=== PATIENT | male | born 1930 | race Two or more races ===

== ENCOUNTER 2017-11-18 14:44 | Inpatient (IN) | payer MEDICARE, OTHER ==
[~2017-11-18] VITALS: Ht 172.7 cm; Wt 67.1 kg
[~2017-11-18 14:44] MED LIST: DEXL60CA3 PO; TAMS-12 PO
--- NOTE | 2017-11-18 14:44 | NUR ---
[id number] FROM HOME FOR WORSENING SOB. 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 PT SPEAKS IN FULL SENTENCE. MONEGASQUE SPEAKING ONLY. DOES NOT APPEAR IN RESP DISTRESS. GOWNED AND PLACED ON CONT CARDIAC AND POX MONITROING, O2 SAT-96% RA. O2 VIA NC AT 2LPM GIVEN FOR COMFORT. WILL CONT TO MONITOR
[2017-11-18 15:27] LABS: BASOPHILS # (AUTO) 0.1 /CMM (0.0-0.2); BASOPHILS % (AUTO) 0.6 % (0.0-2.0); EOSINOPHILS % (AUTO) 0.9 % (0.0-6.0); HEMATOCRIT 35 % (39-51); HEMOGLOBIN 12.1 g/dL (13.5-17.5); LYMPHOCYTES # (AUTO) 2.2 /CMM (0.8-4.8); LYMPHOCYTES % (AUTO) 14.6 % (20.0-44.0); MEAN CORPUSCULAR HEMOGLOBIN 29 PG (26.0-33.0); MEAN CORPUSCULAR HGB CONC 35 g/dl (31.0-36.0); MEAN CORPUSCULAR VOLUME 82 fL (80-96); MONOCYTES # (AUTO) 1.4 /CMM (0.1-1.30); MONOCYTES % (AUTO) 9.4 % (2.0-12.0); NEUTROPHILS # (AUTO) 11.5 /CMM (1.8-8.9); NEUTROPHILS % (AUTO) 74.5 % (43.0-81.0); PLATELET COUNT (AUTO) 322 /CMM (150-450); RDW COEFFICIENT OF VARIATION 14.3 (11.5-15.0); RED BLOOD CELL COUNT(AUTO) 4.26 MIL/uL (4.5-6.0); WHITE BLOOD COUNT (AUTO) 15.3 K/uL (4.3-11.0)
[2017-11-18 15:41] LABS: INR 0.99 (0.85-1.15)
[2017-11-18 15:45] LABS: ALANINE AMINOTRANSFERASE 30 U/L (12-78); ALBUMIN 2.5 g/dL (3.4-5.0); ALKALINE PHOSPHATASE 68 U/L (46-116); ASPARTATE AMINOTRANSFERASE 22 U/L (15-37); BILIRUBIN,DIRECT 0.1 mg/dL (0.0-0.2); BILIRUBIN,TOTAL 0.3 mg/dL (0.2-1.0); CALCIUM, SERUM 9.7 mg/dL (8.5-10.1); CARBON DIOXIDE 25 mmol/L (21-32); CHLORIDE 103 mmol/L (98-107); GLUCOSE 145 mg/dL (74-106); POTASSIUM 3.5 mmol/L (3.5-5.1); SODIUM SERUM 136 mmol/L (136-145); TOTAL PROTEIN, SERUM 7.1 g/dL (6.4-8.2); UREA NITROGEN, BLOOD 10 mg/dL (7-18)
[2017-11-18 15:46] LABS: TROPONIN I < 0.017 ng/mL (0.00-0.056)
--- NOTE | 2017-11-18 16:57 | NUR ---
[facility] PAGED, PATRICIA FLORES DATA STORAGE SPECIALIST
[2017-11-18] MEDS ORDERED: LEVOFLOXACIN 750 MG /D5W 150ML PIGGYBACK IV ONE (17:00)
--- NOTE | 2017-11-18 17:04 | NUR ---
CALLED NURSING SUP. FOR TELE BED
[2017-11-18 17:19] LABS: APPEARANCE,URINE Clear (CLEAR); BILIRUBIN,URINE Negative (NEGATIVE); BLOOD, URINE Moderate Ery/uL (NEGATIVE); COLOR,URINE Yellow (YELLOW); KETONES,URINE Negative (NEGATIVE); LEUKOCYTE ESTERASE ,URINE Trace (NEGATIVE); NITRITE, URINE Negative (NEGATIVE); PROTEIN,URINE Trace mg/dl (NEGATIVE); UGLUCOSE Negative (NEGATIVE); UROBILINOGEN,URINE 0.2 EU/dL (0.2)
[2017-11-18 17:33] LABS: BACTERIA,URINE Few /HPF (None Seen); SQUAMOUS EPITHELIAL CELL,UR Few /HPF (None Seen)
--- NOTE | 2017-11-18 17:34 | NUR ---
TELE [id number] FOR PNEUMONIA, PATRICIA FLORES ADMITTING
[2017-11-18] MEDS ORDERED: LEVOFLOXACIN 750 MG /D5W 150ML 150 ML IV ONE (17:35)
[2017-11-18] MEDS ORDERED: DONE10TA44 PO (17:48)
[2017-11-18] MEDS ORDERED: FLUO20CA36 PO (17:48)
[2017-11-18] MEDS ORDERED: SIMV20TA6 PO (17:48)
[2017-11-18] MEDS ORDERED: FENO134C PO (17:48)
[2017-11-18] MEDS ORDERED: METO-356 PO (17:48)
[2017-11-18] MEDS ORDERED: RANI300C PO (17:48)
[2017-11-18] MEDS ORDERED: FINA5TAB11 PO (17:48)
[2017-11-18] MEDS ORDERED: ATEN25TA PO (17:48)
[2017-11-18] MEDS ORDERED: LINA145C PO (17:48)
[2017-11-18] MEDS ORDERED: MEMA28CA PO (17:48)
[2017-11-18] MEDS ORDERED: METF500T6 PO (17:48)
[2017-11-18] MEDS ORDERED: RAMI2.5C PO (17:48)
[2017-11-18] MEDS ORDERED: ESCI10TA PO (17:48)
[2017-11-18] MEDS ORDERED: TAMS0.4C34 PO (17:48)
--- NOTE | 2017-11-18 18:26 | NUR ---
REPORT GIVEN TO SHEREEN DUPREE FOR TELE [id number].
[2017-11-18] MEDS ORDERED: HYDROCODONE/APAP 5/325MG 1 EACH TABLET PO PRN (19:00)
[2017-11-18] MEDS ORDERED: HYDROCODONE/APAP 10/325MG 1 EA TABLET PO PRN (19:00)
[2017-11-18] MEDS ORDERED: MAG HYDROX/AL HYDROX/SIMETH 30 ML UDC PO PRN (19:00)
[2017-11-18] MEDS ORDERED: MAGNESIUM HYDROXIDE 30 ML UDC PO PRN (19:00)
[2017-11-18] MEDS ORDERED: Z GUARD REMEDY 2 OZ OINT TP PRN (19:00)
[2017-11-18] MEDS ORDERED: ONDANSETRON HCL/PF 4 MG/2 ML VIAL IVP PRN (19:00)
[2017-11-18] MEDS ORDERED: ACETAMINOPHEN 325 MG TABLET PO PRN (19:00)
--- NOTE | 2017-11-18 19:05 | NUR ---
EXECUTIVE ADVISOR OPENING NOTE RECEIVE PATIENT AWAKE IN BED, A/O X3, STABLE NEW ADMISSION, NO FACIAL GRIMACING NOTED FOR PAIN. NO SOB OR DISTRESS NOTED, CALL LIGHT WITHIN REACH. SAFETY MEASURES IMPLEMENTED. WILL CONTINUE TO MONITOR THROUGHOUT SHIFT.
[2017-11-18] MEDS ORDERED: DEXTROSE 50%-WATER 50 ML DISP.SYRIN IV PRN (19:30)
[2017-11-18 20:00] VITALS: BP 112/62
[2017-11-18] MEDS ORDERED: IOHEXOL-300 100 ML VIAL IV ONE (20:05)
[2017-11-18] MEDS: IV NS 0.9% 1,000 ML IV PRN (20:50)
[2017-11-18] MEDS: BLOOD SUGAR DIAGNOSTIC 1 EACH STRIP IN SCH (21:02)
[2017-11-18] MEDS: INSULIN REGULAR, HUMAN 100 UNIT/ML 3 ML VIAL SQ PRN (21:02)
[2017-11-18] MEDS: SIMVASTATIN 20 MG TABLET PO SCH (21:02)
[2017-11-18] MEDS: TAMSULOSIN 0.4 MG CAP.SR.24H PO SCH (21:02)
[2017-11-19] VITALS: BP 110/64
[2017-11-19 04:00] VITALS: BP_SYST 130; BP_SYST 136; BP_DIAS 73
--- NOTE | 2017-11-19 04:55 | NUR ---
TELE NOTES FOUND MEDICATION AT HIS BEDSIDE CABINET PT DOESN'T ALLOW ME TO TOUCH PT REFUSED TO SEND MEDICATION PHARMACIST FOR SAFE KEEPING DESPITE EXPLAINING RISKS AND BENEFITS OFFERED 3 TIMES, STILL REFUSED PER PATIENT HE WANTS IT AT HIS CABINET, EDUCATED PATIENT THAT MEDICATION MUST BE SENT HOME TODAY AND NOT TO TAKE ANYTHING WITHOUT NURSES KNOWLEDGE PATIENT A/O X 3, CHARGE NURSE AWARE.
[2017-11-19] MEDS: BLOOD SUGAR DIAGNOSTIC 1 EACH STRIP IN SCH ×4 (05:49→21:42)
[2017-11-19] MEDS: INSULIN REGULAR, HUMAN 100 UNIT/ML 3 ML VIAL SQ PRN (05:49)
--- NOTE | 2017-11-19 06:06 | NUR ---
EXTENSION SERVICE SPECIALIST IN CHARGE CLOSING NOTES PT COMFORTABLY ASLEEP AND EASILY AWAKEN, A/O X 3, ON 2 LPM VIA NC 02 SAT AT 95% STABLE CONDITION. RESPIRATION EVEN AND UNLABORED. KEPT CLEAN AND DRY AND COMFORTABLE, ALL NURSING CARE RENDERED. NEEDS ATTENDED AND ANTICIPATED, GOOD SKIN CARE PROVIDED. ON LOW BED AT ALL TIMES TO ENSURE SAFETY. SAFE HAZARD FREE ENVIRONMENT PROVIDED. NO COMPLAINS OF PAIN. CALL LIGHT WITHIN EASY TO REACH. WILL ENDORSE NEXT SHIFT CONTINUITY OF CARE.
--- NOTE | 2017-11-19 07:30 | NUR ---
TRUST ADMINISTRATIVE ASSISTANT OPENING NOTE RECEIVE PATIENT AWAKE IN BED, A/O X3, NO ACUTE DISTRESS, NO SON. DENIED PAIN OR DISCOMFORT. IV SITE INTACT AND PATENT. SAFETY MEASURES IN PLACE. BED IN LOW/LOCKED POSITION, SIDERAILS UP, SEMIFOWLERS POSITION, CALL LIGHT IN REACH. WILL CONTINUE TO MONIOTR ACCORDINGLY.
[2017-11-19 07:48] LABS: BASOPHILS % (AUTO) 0.4 % (0.0-2.0); EOSINOPHILS % (AUTO) 0.6 % (0.0-6.0); HEMATOCRIT 33 % (39-51); HEMOGLOBIN 10.9 g/dL (13.5-17.5); LYMPHOCYTES # (AUTO) 2.1 /CMM (0.8-4.8); LYMPHOCYTES % (AUTO) 15.5 % (20.0-44.0); MEAN CORPUSCULAR HEMOGLOBIN 28 PG (26.0-33.0); MEAN CORPUSCULAR HGB CONC 33 g/dl (31.0-36.0); MEAN CORPUSCULAR VOLUME 84 fL (80-96); MONOCYTES # (AUTO) 1.4 /CMM (0.1-1.30); MONOCYTES % (AUTO) 10.6 % (2.0-12.0); NEUTROPHILS # (AUTO) 9.8 /CMM (1.8-8.9); NEUTROPHILS % (AUTO) 72.9 % (43.0-81.0); PLATELET COUNT (AUTO) 307 /CMM (150-450); RDW COEFFICIENT OF VARIATION 14.5 (11.5-15.0); RED BLOOD CELL COUNT(AUTO) 3.87 MIL/uL (4.5-6.0); WHITE BLOOD COUNT (AUTO) 13.4 K/uL (4.3-11.0)
[2017-11-19 08:00] VITALS: BP 118/71
[2017-11-19 08:09] LABS: CALCIUM, SERUM 9.2 mg/dL (8.5-10.1); CARBON DIOXIDE 23 mmol/L (21-32); CHLORIDE 102 mmol/L (98-107); CREATININE 0.9 mg/dL (0.6-1.3); GLUCOSE 115 mg/dL (74-106); MAGNESIUM 1.6 mg/dL (1.8-2.4); PHOSPHORUS 3.8 mg/dL (2.5-4.9); POTASSIUM 3.4 mmol/L (3.5-5.1); SODIUM SERUM 135 mmol/L (136-145); UREA NITROGEN, BLOOD 10 mg/dL (7-18)
[2017-11-19 08:15] LABS: CHOLESTEROL 144 mg/dL (<200); HDL CHOLESTEROL 36 mg/dL (40-60); LDL 103 mg/dL (0-99); THYROID STIMULATING HORMONE 1.629 uIU/mL (0.358-3.74); TRIGLYCERIDES 63 mg/dL (30-150)
[2017-11-19 08:17] LABS: FERRITIN 545 ng/mL (8-388)
[2017-11-19 08:25] LABS: IRON, SERUM 42 ug/dl (50-175); TOTAL IRON BINDING CAPACITY 158 ug/dl (250-450)
[2017-11-19] MEDS: ESCITALOPRAM OXALATE (10 MG) 10 MG TABLET PO SCH (08:57)
[2017-11-19] MEDS: FLUOXETINE HCL 20 MG CAPSULE PO SCH (08:57)
[2017-11-19] MEDS: FINASTERIDE (5 MG) 5 MG TABLET PO SCH (08:57)
[2017-11-19] MEDS: FAMOTIDINE (20 MG) 20 MG TABLET PO SCH (08:57)
[2017-11-19] MEDS: METOPROLOL SUCCINATE 25 MG TAB.SR.24H PO SCH (08:58)
[2017-11-19] MEDS: ATENOLOL 25 MG TABLET PO SCH (08:58)
[2017-11-19] MEDS: MEMANTINE HCL 5 MG TABLET PO SCH ×2 (08:58→17:10)
[2017-11-19] MEDS: DONEPEZIL 5 MG TABLET PO SCH (08:59)
[2017-11-19] MEDS ORDERED: Medication Not On Formulary EA (Linaclotide (Linzess) 145 MCG) PO SCH (09:00)
[2017-11-19] MEDS ORDERED: POTASSIUM CHLORIDE 20 MEQ TAB.PRT.SR PO SCH (11:00)
[2017-11-19] MEDS: Magnesium 1GM/D5W 100ML PREMIX 100 ML IV SCH ×2 (11:17→12:04)
[2017-11-19] MEDS: RAMIPRIL 1.25 MG CAPSULE PO SCH (11:17)
[2017-11-19 12:30] VITALS: BP 119/64
[2017-11-19 16:00] VITALS: BP 113/66
[2017-11-19] MEDS: IV NS 0.9% 1,000 ML IV PRN (17:11)
[2017-11-19] MEDS: LEVOFLOXACIN 750 MG /D5W 150ML 750 MG in PREMIX 1 EA IV SCH (17:11)
--- NOTE | 2017-11-19 19:10 | NUR ---
RN CLOSING NOTES PATIENT IN STABLE CONDITION. ALL NEEDS ATTENDED AND PROVIDED. KEPT PATIENT SAFE AND COMFORTABLE. BED IN LOW/LOCKED POSITION, SIDERAILS UPX2, CALL LIGHT IN REACH. ENDORSED TO NIGHT RN FOR CARLY.
[2017-11-19 20:00] VITALS: BP 108/63
[2017-11-19] MEDS: SIMVASTATIN 20 MG TABLET PO SCH (21:42)
[2017-11-19] MEDS: TAMSULOSIN 0.4 MG CAP.SR.24H PO SCH (21:42)
[2017-11-20] MEDS: BLOOD SUGAR DIAGNOSTIC 1 EACH STRIP IN SCH ×4 (06:31→21:08)
[2017-11-20 06:39] LABS: INR 1.02 (0.87-1.13)
[2017-11-20 06:50] LABS: CALCIUM, SERUM 9.4 mg/dL (8.5-10.1); CARBON DIOXIDE 24 mmol/L (21-32); CHLORIDE 102 mmol/L (98-107); CREATININE 0.8 mg/dL (0.6-1.3); GLUCOSE 118 mg/dL (74-106); POTASSIUM 3.8 mmol/L (3.5-5.1); SODIUM SERUM 135 mmol/L (136-145); UREA NITROGEN, BLOOD 12 mg/dL (7-18)
--- NOTE | 2017-11-20 06:50 | NUR ---
MS RN NOTES AWAKE & RESPONSIVE. NOT IN ANY DISTRESS. NO SOB NOTED. DENIES ANY PAIN OR DISCOMFORT AT THIS TIME. KEPT ON NPO P MN WITH IVF INFUSING WELL. MONITORED ACCORDINGLY. CALL LIGHT WITHIN REACH. BED IN LOWEST POSITION. SR UP X 2 FOR SAFETY. WILL ENDORSE TO NEXT SHIFT.
[2017-11-20 08:00] VITALS: BP 128/67
--- NOTE | 2017-11-20 08:07 | NUR ---
MS RN OPENING NOTE RECEIVED PATIENT IN BED, ALERT ORIENTED X3, ON 2L O2 VIA NC, TOLERATING WELL. IN NO APPARENT DISTRESS OR DISCOMFORT AT THIS TIME. RESPIRATIONS EVEN AND UNLABORED, DENIES PAIN AND SOB. PATIENT IS MALDIVIAN SPEAKING AND ABLE TO COMMUNICATE NEEDS IN HIS OWN LANGUAGE. AMBULATES WITH ASSISTANCE. PATIENT IS ON NPO STATUS DUE TO UPCOMING PROCEDURE. L HAND 22G IVC WITH FLUIDS RUNNING AT 65ML/HR, NO SING OF INFILTRATION NOTED. PATENT AND INTACT. ALL NEEDS ATTENDED, SAFETY MEASURES IN PLACE, BED IN LOW LOCKED POSITION, SIDE RAILS UP X2, CALL LIGHT WITHIN EASY REACH. WILL CONTINUE TO MONITOR.
[2017-11-20] MEDS: ATENOLOL 25 MG TABLET PO SCH (09:00)
[2017-11-20] MEDS: FAMOTIDINE (20 MG) 20 MG TABLET PO SCH (09:00)
[2017-11-20] MEDS: RAMIPRIL 1.25 MG CAPSULE PO SCH (09:00)
[2017-11-20] MEDS: METOPROLOL SUCCINATE 25 MG TAB.SR.24H PO SCH (09:00)
[2017-11-20] MEDS: MEMANTINE HCL 5 MG TABLET PO SCH ×2 (09:00→16:53)
[2017-11-20] MEDS: ESCITALOPRAM OXALATE (10 MG) 10 MG TABLET PO SCH (09:00)
[2017-11-20] MEDS: FINASTERIDE (5 MG) 5 MG TABLET PO SCH (09:00)
[2017-11-20] MEDS: FLUOXETINE HCL 20 MG CAPSULE PO SCH (09:00)
[2017-11-20] MEDS: DONEPEZIL 5 MG TABLET PO SCH (09:00)
--- NOTE | 2017-11-20 11:30 | NUR ---
DR REBOLLEDO NOTIFIED OLEG THAT PATIENT IS NOT GOING TO HAVE PROCEDURE DONE TODAY. PATIENT WAS TAKEN OFF THE NPO STATUS. LUNCH ORDERED. WILL CARRY OUT FURTHER ORDERS.
[2017-11-20] MEDS: IV NS 0.9% 1,000 ML IV PRN (12:41)
[2017-11-20 16:00] VITALS: BP 115/58
[2017-11-20] MEDS: LEVOFLOXACIN 750 MG /D5W 150ML 750 MG in PREMIX 1 EA IV SCH (17:02)
--- NOTE | 2017-11-20 18:55 | NUR ---
MS RN CLOSING NOTE PATIENT IN BED, ALERT ORIENTED X3, ON ROOM AIR CURRENTLY, TOLERATING WELL. IN NO APPARENT DISTRESS OR DISCOMFORT AT THIS TIME. RESPIRATIONS EVEN AND UNLABORED, DENIES PAIN AND SOB. PATIENT IS MONGOLIAN SPEAKING AND ABLE TO COMMUNICATE NEEDS IN HIS OWN LANGUAGE. AMBULATES WITH STANDBY ASSISTANCE. L HAND 22G IVC WITH FLUIDS RUNNING AT 65ML/HR, NO SING OF INFILTRATION NOTED. PATENT AND INTACT. ALL NEEDED INTERVENTIONS IMPLEMENTED, NEEDS ATTENDED, KEPT CLEAN AND COMFORTABLE, SAFETY MEASURES IN PLACE, BED IN LOW LOCKED POSITION, SIDE RAILS UP X2, CALL LIGHT WITHIN EASY REACH. FAMILY AT BEDSIDE. WILL ENDORSE TO PM NURSE FOR CARLY.
[2017-11-20 20:00] VITALS: BP 124/67
[2017-11-20] MEDS: TAMSULOSIN 0.4 MG CAP.SR.24H PO SCH (21:08)
[2017-11-20] MEDS: SIMVASTATIN 20 MG TABLET PO SCH (21:08)
[2017-11-21] MEDS: IV D5/0.45 NACL 1,000 ML IV PRN (01:24)
--- NOTE | 2017-11-21 06:13 | NUR ---
MS RN NOTES AWAKE & RESPONSIVE. NOT IN ANY DISTRESS. NO SOB NOTED. DENIES ANY PAIN OR DISCOMFORT AT THIS TIME. KEPT ON NPO WITH IVF INFUSING WELL. MONITORED ACCORDINGLY. CALL LIGHT WITHIN REACH. BED IN LOWEST POSITION. SR UP X 2 FOR SAFETY. WILL ENDORSE TO NEXT SHIFT.
[2017-11-21] MEDS: BLOOD SUGAR DIAGNOSTIC 1 EACH STRIP IN SCH ×4 (06:18→21:58)
--- NOTE | 2017-11-21 07:34 | NUR ---
MS RN OPENING NOTE RECEIVED PATIENT IN BED, ALERT ORIENTED X3, ON ROOM AIR AT THIS TIME, TOLERATING WELL. IN NO APPARENT DISTRESS OR DISCOMFORT AT THIS TIME. RESPIRATIONS EVEN AND UNLABORED, DENIES PAIN AND SOB. PATIENT IS ARABIC SPEAKING AND ABLE TO COMMUNICATE NEEDS IN HIS OWN LANGUAGE. AMBULATES WITH ASSISTANCE. PATIENT IS ON NPO STATUS DUE TO UPCOMING PROCEDURE. L HAND 22G IVC WITH FLUIDS RUNNING AT 65ML/HR, NO SING OF INFILTRATION NOTED. PATENT AND INTACT. ALL NEEDS ATTENDED, SAFETY MEASURES IN PLACE, BED IN LOW LOCKED POSITION, SIDE RAILS UP X2, CALL LIGHT WITHIN EASY REACH. WILL CONTINUE TO MONITOR.
[2017-11-21 08:00] VITALS: BP 132/66
[2017-11-21 08:10] LABS: IMMUNOGLOBULIN A, SERUM 193 mg/dL (61-437); IMMUNOGLOBULIN G, SERUM 882 mg/dL (700-1600); IMMUNOGLOBULIN M, SERUM 53 mg/dL (15-143)
[2017-11-21 08:29] LABS: BASOPHILS % (AUTO) 0.3 % (0.0-2.0); EOSINOPHILS % (AUTO) 0.7 % (0.0-6.0); HEMATOCRIT 32 % (39-51); HEMOGLOBIN 11.3 g/dL (13.5-17.5); LYMPHOCYTES # (AUTO) 2.2 /CMM (0.8-4.8); LYMPHOCYTES % (AUTO) 18.1 % (20.0-44.0); MEAN CORPUSCULAR HEMOGLOBIN 29 PG (26.0-33.0); MEAN CORPUSCULAR HGB CONC 35 g/dl (31.0-36.0); MEAN CORPUSCULAR VOLUME 83 fL (80-96); MONOCYTES # (AUTO) 1.3 /CMM (0.1-1.30); NEUTROPHILS # (AUTO) 8.5 /CMM (1.8-8.9); NEUTROPHILS % (AUTO) 69.9 % (43.0-81.0); PLATELET COUNT (AUTO) 294 /CMM (150-450); RDW COEFFICIENT OF VARIATION 14.1 (11.5-15.0); RED BLOOD CELL COUNT(AUTO) 3.88 MIL/uL (4.5-6.0); WHITE BLOOD COUNT (AUTO) 12.1 K/uL (4.3-11.0)
[2017-11-21 08:43] LABS: CALCIUM, SERUM 8.9 mg/dL (8.5-10.1); CARBON DIOXIDE 23 mmol/L (21-32); CHLORIDE 103 mmol/L (98-107); CREATININE 0.9 mg/dL (0.6-1.3); GLUCOSE 160 mg/dL (74-106); POTASSIUM 3.5 mmol/L (3.5-5.1); SODIUM SERUM 137 mmol/L (136-145); UREA NITROGEN, BLOOD 13 mg/dL (7-18)
[2017-11-21] MEDS: DONEPEZIL 5 MG TABLET PO SCH (09:00)
[2017-11-21] MEDS: FINASTERIDE (5 MG) 5 MG TABLET PO SCH (09:00)
[2017-11-21] MEDS: FLUOXETINE HCL 20 MG CAPSULE PO SCH (09:00)
[2017-11-21] MEDS: MEMANTINE HCL 5 MG TABLET PO SCH ×2 (09:00→17:19)
[2017-11-21] MEDS: ESCITALOPRAM OXALATE (10 MG) 10 MG TABLET PO SCH (09:00)
[2017-11-21] MEDS: METOPROLOL SUCCINATE 25 MG TAB.SR.24H PO SCH (09:00)
[2017-11-21] MEDS: ATENOLOL 25 MG TABLET PO SCH (09:00)
[2017-11-21] MEDS: FAMOTIDINE (20 MG) 20 MG TABLET PO SCH (09:00)
[2017-11-21] MEDS: RAMIPRIL 1.25 MG CAPSULE PO SCH (09:00)
[2017-11-21] MEDS: FENOFIBRATE NANOCRYS (145 MG) 145 MG TABLET PO SCH (11:00)
[2017-11-21] MEDS ORDERED: methylPREDNISolone SOD SUCC 40 MG/ML VIAL IV ONE (12:00)
[2017-11-21 12:13] LABS: *SPE A/G RATIO 0.7 (0.7-1.7); *SPE ALBUMIN 2.5 g/dL (2.9-4.4); *SPE ALPHA-1-GLOBULIN 0.4 g/dL (0.0-0.4); *SPE ALPHA-2-GLOBULIN 1.3 g/dL (0.4-1.0); *SPE BETA GLOBULIN 0.9 g/dL (0.7-1.3); *SPE GLOBULIN, TOTAL 3.4 g/dL (2.2-3.9); *SPE M-SPIKE Not Observed g/dL (Not Observed); *SPEGAMMA GLOBULIN 0.9 g/dL (0.4-1.8)
--- NOTE | 2017-11-21 12:45 | NUR ---
ORDER RECEIVED BY DR. MCADAMS FOR PRE - BRONCHOSCOPY BREATHING TREATMENTS. ONE HOUR BEFORE PROCEDURE. PROCEDURE SCHEDULED AT 1400. ORDER PLACED FOR 1300 BREATHING TREATMENT. CALLED RT NOTIFIED ABOUT THE ORDER TO BE COMPLETED AT 1300./
[2017-11-21] MEDS ORDERED: IPRATROPIUM NEB FS 0.5 MG/2.5 ML AMPUL.NEB NEB ONE (13:00)
[2017-11-21] MEDS ORDERED: ALBUTEROL HALF STRENGTH 1.25 MG/3 ML VIAL.NEB NEB ONE (13:00)
[2017-11-21] MEDS ORDERED: LIDOCAINE 2% JEL 5 ML TUBE ONE (14:15)
[2017-11-21] MEDS ORDERED: SUCCINYLCHOLINE CHLORIDE 20 MG/ML VIAL ONE (14:18)
--- NOTE | 2017-11-21 15:20 | NUR ---
PATIENT WAS BROUGHT BACK FROM OR. STABLE, ALERT ORIENTED X2-3, SLIGHTLY CONFUSED. VITALS SIGNS: BP 125/68, HR: 105, O2 SAT: 94% ON ROOM AIR. RECEIVED ORDER TO RESUME PRE-OP ORDERS, REGULAR DIET WHEN AWAKE AND DC IV FLUIDS ONCE PATIENT STARTS EATING. WILL CONTINUE TO MONITOR.
[2017-11-21] MEDS ORDERED: HYDROCODONE BIT/HOMATROPINE 5 ML UDC PO PRN (15:30)
[2017-11-21 16:00] VITALS: BP 125/68
--- NOTE | 2017-11-21 16:27 | NUR ---
RECEIVED REPORT FROM PHARMACY THAT PATIENT'S HOME MEDICATION LINZESS IS NOT AVAILABLE IN THE PHARMACY AND THAT MEDICATION SHOULD BE BROUGHT FROM HOME. PATIENT'S DAUGHTER SAID SHE WONT BE ABLE TO BRING IT FROM HIS FATHER'S HOME. NOTIFIED DR. TILLMAN ABOUT THE MEDICATION NOT BEING AVAILABLE. NO NEW ORDERS AT THIS TIME.
[2017-11-21] MEDS: POLYVINYL ALCOHOL 15 ML BOTTLE EACHEYE PRN (17:19)
[2017-11-21] MEDS: LEVOFLOXACIN 750 MG /D5W 150ML 750 MG in PREMIX 1 EA IV SCH (17:25)
[2017-11-21] MEDS: INSULIN REGULAR, HUMAN 100 UNIT/ML 3 ML VIAL SQ PRN ×2 (17:25→22:09)
--- NOTE | 2017-11-21 19:09 | NUR ---
MS RN CLOSING NOTE PATIENT IN BED, ALERT ORIENTED X3, ON ROOM AIR CURRENTLY, TOLERATING WELL. IN NO APPARENT DISTRESS OR DISCOMFORT AT THIS TIME. RESPIRATIONS EVEN AND UNLABORED, DENIES PAIN AND SOB. PATIENT IS DIVEHI SPEAKING AND ABLE TO COMMUNICATE NEEDS IN HIS OWN LANGUAGE. AMBULATES WITH STANDBY ASSISTANCE. L HAND 22G IVC WITH FLUIDS RUNNING AT 75ML/HR, NO SING OF INFILTRATION NOTED. PATENT AND INTACT PATIENT REMAINED STABLE AFTER BRONCHOSCOPY, TOLERATED ORAL INTAKE. ALL NEEDED INTERVENTIONS IMPLEMENTED, NEEDS ATTENDED, KEPT CLEAN AND COMFORTABLE, SAFETY MEASURES IN PLACE, BED IN LOW LOCKED POSITION, SIDE RAILS UP X2, CALL LIGHT WITHIN EASY REACH. WILL ENDORSE TO PM NURSE FOR CARLY.
--- NOTE | 2017-11-21 19:10 | NUR ---
RN NOTES RECEIVED PATIENT IN BED, AWAKE, A/O X 3, VERBALLY RESPONSIVE FORGETFUL . NO DISTRESS NOTED OR SOB NOTED. IV SITE ON LEFT HAND INTACT AND PATENT, NO S/S OF INFILTRATION NOTED. NO S/S OF HYPO/ HYPERGLYCEMIA NOTED. NO C/O OF PAIN OR DISCOMFORT. ALL NEEDS ATTENDED AND MET. CALL LIGHT WITHIN REACH. SAFETY PRECAUTIONS OBSERVED. WILL CONT TO MONITOR.
[2017-11-21 20:00] VITALS: BP_SYST 112; BP_SYST 118; BP_DIAS 68; BP_DIAS 72
[2017-11-21] MEDS: SIMVASTATIN 20 MG TABLET PO SCH (21:58)
[2017-11-21] MEDS: TAMSULOSIN 0.4 MG CAP.SR.24H PO SCH (21:58)
[2017-11-22] MEDS: IV D5/0.45 NACL 1,000 ML IV PRN ×2 (06:12→17:42)
[2017-11-22] MEDS: BLOOD SUGAR DIAGNOSTIC 1 EACH STRIP IN SCH ×4 (06:14→21:30)
[2017-11-22] MEDS: POLYVINYL ALCOHOL 15 ML BOTTLE EACHEYE PRN (06:19)
[2017-11-22 06:44] LABS: BASOPHILS # (AUTO) 0.1 /CMM (0.0-0.2); BASOPHILS % (AUTO) 0.4 % (0.0-2.0); EOSINOPHILS % (AUTO) 0.1 % (0.0-6.0); HEMATOCRIT 33 % (39-51); HEMOGLOBIN 11.5 g/dL (13.5-17.5); LYMPHOCYTES # (AUTO) 2.6 /CMM (0.8-4.8); LYMPHOCYTES % (AUTO) 16.1 % (20.0-44.0); MEAN CORPUSCULAR HEMOGLOBIN 29 PG (26.0-33.0); MEAN CORPUSCULAR HGB CONC 35 g/dl (31.0-36.0); MEAN CORPUSCULAR VOLUME 83 fL (80-96); MONOCYTES # (AUTO) 1.6 /CMM (0.1-1.30); NEUTROPHILS % (AUTO) 73.4 % (43.0-81.0); PLATELET COUNT (AUTO) 313 /CMM (150-450); RDW COEFFICIENT OF VARIATION 14.1 (11.5-15.0); WHITE BLOOD COUNT (AUTO) 16.3 K/uL (4.3-11.0)
--- NOTE | 2017-11-22 06:45 | NUR ---
RN NOTES PATIENT IN BED, RESTING COMFORTABLY, AROUSES EASILY, A/O X 3, VERBALLY RESPONSIVE FORGETFUL . NO DISTRESS NOTED OR SOB NOTED. IV SITE ON LEFT HAND INTACT AND PATENT, NO S/S OF INFILTRATION NOTED. NO S/S OF HYPO/ HYPERGLYCEMIA NOTED. NO C/O OF PAIN OR DISCOMFORT. ALL NEEDS ATTENDED AND MET. CALL LIGHT WITHIN REACH. SAFETY PRECAUTIONS OBSERVED. WILL ENDORSE TO NEXT SHIFT FOR CARLY
[2017-11-22 07:12] LABS: CALCIUM, SERUM 9.6 mg/dL (8.5-10.1); CARBON DIOXIDE 23 mmol/L (21-32); CHLORIDE 103 mmol/L (98-107); CREATININE 0.9 mg/dL (0.6-1.3); GLUCOSE 126 mg/dL (74-106); POTASSIUM 3.9 mmol/L (3.5-5.1); SODIUM SERUM 137 mmol/L (136-145); UREA NITROGEN, BLOOD 17 mg/dL (7-18)
[2017-11-22 08:00] VITALS: BP 133/72
--- NOTE | 2017-11-22 08:21 | NUR ---
DOCUMENTED RESPIRATORY TREATMENT NON-ADMINISTERED TO RID OF THE RED REMINDER.
[2017-11-22] MEDS: FAMOTIDINE (20 MG) 20 MG TABLET PO SCH (09:01)
[2017-11-22] MEDS: MEMANTINE HCL 5 MG TABLET PO SCH ×2 (09:02→17:31)
[2017-11-22] MEDS: FINASTERIDE (5 MG) 5 MG TABLET PO SCH (09:02)
[2017-11-22] MEDS: FLUOXETINE HCL 20 MG CAPSULE PO SCH (09:02)
[2017-11-22] MEDS: DONEPEZIL 5 MG TABLET PO SCH (09:03)
[2017-11-22] MEDS: ESCITALOPRAM OXALATE (10 MG) 10 MG TABLET PO SCH (09:04)
[2017-11-22] MEDS: FENOFIBRATE NANOCRYS (145 MG) 145 MG TABLET PO SCH (09:04)
[2017-11-22] MEDS: METOPROLOL SUCCINATE 25 MG TAB.SR.24H PO SCH (09:04)
[2017-11-22] MEDS: ATENOLOL 25 MG TABLET PO SCH (09:05)
[2017-11-22] MEDS: RAMIPRIL 1.25 MG CAPSULE PO SCH (09:08)
--- NOTE | 2017-11-22 10:56 | NUR ---
MS RN OPENING NOTE RECEIVED BEDSIDE SBAR REPORT ON THE PATIENT. PATIENT IS A/O X4, ASLEEP, AWAKEN EASILY IN BED. BED IS LOCKED IN LOWEST POSITION, SIDE RAILS UP X2,BED ALARM IS ON. PATIENT IS AMBULATORY WITH ASSIST. CALL LIGHT WITHIN REACH. EDUCATED THE PATIENT TO CALL FOR ASSISTANCE USING THE CALL LIGHT. PATIENT VERBALIZED UNDERSTANDING. CHEST RISING EQUALLY, BILATERALLY. SPO2 94% ON RA. VS WNL. DENIES PAIN/DISCOMFORT AT THIS TIME. WILL CONTINUE TO ASSESS/MONITOR THROUGHOUT THE SHIFT.
--- NOTE | 2017-11-22 12:12 | NUR ---
Refused Bg check. Will attempt later.
--- NOTE | 2017-11-22 13:39 | NUR ---
Refused BG check
[2017-11-22] MEDS: AMOX/CLAVULANATE 875 MG TABLET PO SCH ×2 (14:50→21:12)
[2017-11-22 16:00] VITALS: BP 131/70
--- NOTE | 2017-11-22 18:54 | NUR ---
MS RN CLOSING NOTE PATIENT IS A/O X4, AWAKE AND RESPONSIVE IN BED. JAPANESE SPEAKING. BED IS LOCKED IN LOWEST POSITION, SIDE RAILS UP X2,BED ALARM IS ON. PATIENT IS AMBULATORY WITH ASSIST. CALL LIGHT WITHIN REACH. EDUCATED THE PATIENT TO CALL FOR ASSISTANCE USING THE CALL LIGHT. PATIENT VERBALIZED UNDERSTANDING. CHEST RISING EQUALLY, BILATERALLY. SPO2 95% ON RA. VS WNL. DENIES PAIN/DISCOMFORT AT THIS TIME. WILL ENDORSE TO THE HOST HOSTESS NURSE FOR CARLY.
--- NOTE | 2017-11-22 19:10 | NUR ---
MS RN OPENING NOTE Patient was seen lying in bed AAOx3, breathing on RA with no SOB, and no signs of acute distress. D5 1/2NS is running through the left hand at 75ml/hr. Bed is in the low/locked position, two side rails up, and call saenz within reach. Patient was made comfortable in bed with extra blankets at his request; otherwise patient has no immediate needs/concerns at this time. Will continue to monitor.
[2017-11-22 20:00] VITALS: BP 129/75
[2017-11-22] MEDS: SIMVASTATIN 20 MG TABLET PO SCH (21:12)
[2017-11-22] MEDS: TAMSULOSIN 0.4 MG CAP.SR.24H PO SCH (21:12)
[2017-11-22] MEDS: INSULIN REGULAR, HUMAN 100 UNIT/ML 3 ML VIAL SQ PRN (21:30)
[2017-11-23] MEDS: BLOOD SUGAR DIAGNOSTIC 1 EACH STRIP IN SCH ×4 (06:36→21:18)
[2017-11-23] MEDS: INSULIN REGULAR, HUMAN 100 UNIT/ML 3 ML VIAL SQ PRN ×2 (06:38→21:29)
[2017-11-23] MEDS: IV D5/0.45 NACL 1,000 ML IV PRN ×2 (06:39→21:44)
--- NOTE | 2017-11-23 06:58 | NUR ---
MS RN CLOSING NOTE Patient is AAOx3, breathing on RA with no SOB, and no signs of acute distress. Patient slept well overnight with no complaints or complications. D5 1/2 NS is running at 75ml/hr through the left hand IV. Bed is low/locked, two side rails up, and call saenz within reach. All patient needs have been addressed this shift and patient has no concerns at this time. Patient care endorsed to day shift nurse.
--- NOTE | 2017-11-23 07:15 | NUR ---
MS/RN OPENING NOTE PATIENT IN BED AWAKE. ALERT AND ORIENTED X3 WITH EPISODES OF FORGETFULNESS. REMINDERS PROVIDED NEEDED. DENIES SOB. RESPIRATION REGULAR AND UNLABORED. PATIENT IN ROOM AIR. DENIES PAIN. LEFT HAND G 22 PATENT AND IV FLUIDS INFUSING WITH NO S/S INFILTRATION. BED LOW AND LOCKED. SIDE RAILS UP X3. CALL IGHT WITHIN REACH. WILL CONTINUE TO MONITOR.
[2017-11-23 08:00] VITALS: BP 136/66
[2017-11-23 08:05] LABS: CALCIUM, SERUM 9.3 mg/dL (8.5-10.1); CARBON DIOXIDE 25 mmol/L (21-32); CHLORIDE 102 mmol/L (98-107); CREATININE 0.8 mg/dL (0.6-1.3); GLUCOSE 144 mg/dL (74-106); POTASSIUM 3.5 mmol/L (3.5-5.1); SODIUM SERUM 136 mmol/L (136-145); UREA NITROGEN, BLOOD 14 mg/dL (7-18)
[2017-11-23 08:33] LABS: RED BLOOD CELL COUNT(AUTO) 4.19 MIL/uL (4.5-6.0); WHITE BLOOD COUNT (AUTO) 17.2 K/uL (4.3-11.0)
[2017-11-23 08:34] LABS: BASOPHILS % (AUTO) 0.3 % (0.0-2.0); EOSINOPHILS % (AUTO) 0.5 % (0.0-6.0); HEMATOCRIT 34 % (39-51); HEMOGLOBIN 11.7 g/dL (13.5-17.5); LYMPHOCYTES % (AUTO) 10.5 % (20.0-44.0); MEAN CORPUSCULAR HEMOGLOBIN 28 PG (26.0-33.0); MEAN CORPUSCULAR HGB CONC 34 g/dl (31.0-36.0); MEAN CORPUSCULAR VOLUME 82 fL (80-96); MONOCYTES % (AUTO) 10.8 % (2.0-12.0); NEUTROPHILS % (AUTO) 77.9 % (43.0-81.0); PLATELET COUNT (AUTO) 325 /CMM (150-450); RDW COEFFICIENT OF VARIATION 15.2 (11.5-15.0)
[2017-11-23] MEDS: MEMANTINE HCL 5 MG TABLET PO SCH ×2 (08:55→16:55)
[2017-11-23] MEDS: FAMOTIDINE (20 MG) 20 MG TABLET PO SCH (08:55)
[2017-11-23] MEDS: AMOX/CLAVULANATE 875 MG TABLET PO SCH ×2 (08:55→21:18)
[2017-11-23] MEDS: DONEPEZIL 5 MG TABLET PO SCH (08:56)
[2017-11-23] MEDS: FLUOXETINE HCL 20 MG CAPSULE PO SCH (08:56)
[2017-11-23] MEDS: ESCITALOPRAM OXALATE (10 MG) 10 MG TABLET PO SCH (08:56)
[2017-11-23] MEDS: ATENOLOL 25 MG TABLET PO SCH (08:56)
[2017-11-23] MEDS: METOPROLOL SUCCINATE 25 MG TAB.SR.24H PO SCH (08:57)
[2017-11-23] MEDS: FINASTERIDE (5 MG) 5 MG TABLET PO SCH (08:57)
[2017-11-23] MEDS: FENOFIBRATE NANOCRYS (145 MG) 145 MG TABLET PO SCH (08:57)
[2017-11-23] MEDS: RAMIPRIL 1.25 MG CAPSULE PO SCH (09:00)
[2017-11-23] MEDS: POLYVINYL ALCOHOL 15 ML BOTTLE EACHEYE PRN (09:01)
[2017-11-23] MEDS: PIPERACILLIN /TAZOBACTAM 3.375 G in IV D5W 50 ML IV SCH ×2 (11:38→16:59)
--- NOTE | 2017-11-23 12:00 | NUR ---
MS/RN NOTE 1157 BLOOD SUGAR IS 184, HOWEVER, THE PATIENT REFUSES INSULIN. RISKS AND BENEFITS WERE EXPLAINED BUT THE PATIENT STILL REFUSED.
[2017-11-23 16:00] VITALS: BP 99/53
--- NOTE | 2017-11-23 17:30 | NUR ---
MS/RN NOTE AT 1647 BLOOD SUGAR IS 155 AND PATIENT REFUSED INSULIN DESPITE EXPLAINING RISKS AND BENEFITS MULTIPLE TIMES.
--- NOTE | 2017-11-23 18:12 | NUR ---
MS/RN CLOSING NOTE PATIENT ALERT AND ORIENTED X4 WITH EPISODES OF FORGETFULNESS AND BHUTANESE SPEAKING. REMINDERS ARE PROVIDED NEEDED. DENIES PAIN AT THIS TIME. RESPIRATION REGULAR AND UNLABORED. PATIENT IN ROOM AIR AND OXYGEN SATURATION AT 96%. DENIES SOB AT THIS TIME. LEFT HAND G 22 PATENT AND IV INFUSING WITH NO S/S INFILTRATION. PATIENT CONTINENT ON BOWEL AND BLADDER. PATIENT AMBULATES AND NOTED TO HAVE STABLE GAIT. VERBAL CUES ARE PROVIDED TO KEEP SAFETY AWARENESS HIGH. GOOD AND GENTLE SKIN CARE RENDERED. KEPT CLEAN, DRY AND COMFORTABLE. ALL NEEDS ATTENDED AND ANTICIPATED. BED LOW AND LOCKED. SIDE RAILS UP X3. CALL LIGHT WITHIN REACH. WILL ENDORSE TO DRAW FRAME TENDER.
--- NOTE | 2017-11-23 19:15 | NUR ---
MS RN OPENING NOTES: RECEIVED PT IN BED AND IS SITTING UP. PT IS A/OX3 AND IS BRAZILIAN SPEAKING. PT CAN UNDERSTAND SOME MACANESE. PT HAS IV AND IS BEING INFUSED WITH D5 1/2 NS AT 75ML/HR. CALL LIGHT WITHIN PT'S REACH. BED KEPT IN LOW, LOCKED POSITION, AND SIDE RAILS X 2UP. URINAL AT BEDSIDE. WILL CONTINUE TO MONITOR PT.
[2017-11-23 20:36] VITALS: BP 106/58
[2017-11-23] MEDS: TAMSULOSIN 0.4 MG CAP.SR.24H PO SCH (21:18)
[2017-11-23] MEDS: SIMVASTATIN 20 MG TABLET PO SCH (21:18)
--- NOTE | 2017-11-23 21:29 | NUR ---
MS RN NOTES: PT REFUSING INSULIN. BLOOD SUGAR WAS 155 AND EXPLAINED TO HIM THAT HE NEEDS 2 UNITS OF INSULIN. PT EXPLAINED RISKS AND BENEFITS X3. PT STILL REFUSING. PT ALSO EXPLAINED HE DOES NOT TAKE INSULIN AT HOME. WILL CONTINUE TO MONITOR.
[2017-11-24] MEDS: BLOOD SUGAR DIAGNOSTIC 1 EACH STRIP IN SCH ×4 (06:19→21:29)
[2017-11-24] MEDS: INSULIN REGULAR, HUMAN 100 UNIT/ML 3 ML VIAL SQ PRN ×4 (06:28→21:36)
--- NOTE | 2017-11-24 06:28 | NUR ---
MS RN NOTES: BLOOD SUGAR THIS AM WAS 126. NO INSULIN WAS ADMINISTERED. WILL CONTINUE TO MONITOR.
--- NOTE | 2017-11-24 06:49 | NUR ---
MS RN CLOSING NOTES: ALL NEEDS WERE ATTENDED AND ANTICIPATED FOR. PT LAYING DOWN IN BED WITH 2 PILLOWS AND SEMI-HUNTER'S POSITION. PT AWAKE. PT IS GIBRALTARIAN SPEAKING ONLY AND CAN ONLY UNDERSTAND/SPEAK MINIMAL AUSTRALIAN. PT HAS IV IN PLACE AND IS BEING INFUSED WITH IV D5 1/2 NS AT 75ML/HR. CALL LIGHT WITHIN PT'S REACH. BED KEPT IN LOW, LOCKED POSITION, AND SIDE RAILS X 2UP. WILL ENDORSE TO AM NURSE FOR CARLY.
[2017-11-24 08:00] VITALS: BP 111/89
--- NOTE | 2017-11-24 08:00 | NUR ---
MS RN NOTES PATIENT IN BED RESTING ALERT, ORIENTED X3 NO SOB OR ACUTE DISTRESS NOTED. BED IN LOW LOCKED POSITION. CALL LIGHT WITHIN REACH. PATIENT WITH PATENT PERIPHERAL IV. WILL CONTINUE TO MONITOR.
[2017-11-24] MEDS: DONEPEZIL 5 MG TABLET PO SCH (08:32)
[2017-11-24] MEDS: ESCITALOPRAM OXALATE (10 MG) 10 MG TABLET PO SCH (08:32)
[2017-11-24] MEDS: AMOX/CLAVULANATE 875 MG TABLET PO SCH (08:32)
[2017-11-24] MEDS: MEMANTINE HCL 5 MG TABLET PO SCH ×2 (08:32→17:18)
[2017-11-24] MEDS: FINASTERIDE (5 MG) 5 MG TABLET PO SCH (08:32)
[2017-11-24] MEDS: FLUOXETINE HCL 20 MG CAPSULE PO SCH (08:32)
[2017-11-24] MEDS: FENOFIBRATE NANOCRYS (145 MG) 145 MG TABLET PO SCH (08:32)
[2017-11-24] MEDS: FAMOTIDINE (20 MG) 20 MG TABLET PO SCH (08:32)
[2017-11-24] MEDS: ATENOLOL 25 MG TABLET PO SCH (08:33)
[2017-11-24] MEDS: METOPROLOL SUCCINATE 25 MG TAB.SR.24H PO SCH (08:33)
[2017-11-24] MEDS: RAMIPRIL 1.25 MG CAPSULE PO SCH (08:36)
[2017-11-24 09:48] LABS: CALCIUM, SERUM 9.1 mg/dL (8.5-10.1); CARBON DIOXIDE 23 mmol/L (21-32); CHLORIDE 97 mmol/L (98-107); GLUCOSE 229 mg/dL (74-106); POTASSIUM 3.4 mmol/L (3.5-5.1); SODIUM SERUM 133 mmol/L (136-145); UREA NITROGEN, BLOOD 14 mg/dL (7-18)
[2017-11-24 10:00] LABS: BASOPHILS # (AUTO) 0.1 /CMM (0.0-0.2); BASOPHILS % (AUTO) 0.3 % (0.0-2.0); EOSINOPHILS % (AUTO) 0.3 % (0.0-6.0); HEMATOCRIT 33 % (39-51); HEMOGLOBIN 11.7 g/dL (13.5-17.5); LYMPHOCYTES # (AUTO) 1.9 /CMM (0.8-4.8); LYMPHOCYTES % (AUTO) 9.2 % (20.0-44.0); MEAN CORPUSCULAR HEMOGLOBIN 29 PG (26.0-33.0); MEAN CORPUSCULAR HGB CONC 35 g/dl (31.0-36.0); MEAN CORPUSCULAR VOLUME 82 fL (80-96); MONOCYTES # (AUTO) 1.9 /CMM (0.1-1.30); MONOCYTES % (AUTO) 9.2 % (2.0-12.0); NEUTROPHILS # (AUTO) 16.2 /CMM (1.8-8.9); PLATELET COUNT (AUTO) 342 /CMM (150-450); RDW COEFFICIENT OF VARIATION 14.4 (11.5-15.0); RED BLOOD CELL COUNT(AUTO) 4.07 MIL/uL (4.5-6.0); WHITE BLOOD COUNT (AUTO) 20.2 K/uL (4.3-11.0)
[2017-11-24] MEDS ORDERED: POTASSIUM CHLORIDE 20 MEQ TAB.PRT.SR PO ONE (11:30)
[2017-11-24 12:20] LABS: LYMPHOCYTES % (MANUAL) 14 % (16-48); MONOCYTES % (MANUAL) 7 % (0-11.0); NEUTROPHILS % (MANUAL) 79 (42-76)
[2017-11-24] MEDS: IV NS 0.9% 1,000 ML IV PRN (12:22)
[2017-11-24] MEDS ORDERED: IV NS 0.9% 250 ML IV ONE (14:06)
[2017-11-24] MEDS ORDERED: IOHEXOL-300 100 ML VIAL IV ONE (14:06)
[2017-11-24] MEDS ORDERED: CT SWABBABLE VALVE TRANS SET 1 EA INFUS.SET MC ONE (14:06)
[2017-11-24 16:00] VITALS: BP 118/98
--- NOTE | 2017-11-24 17:00 | NUR ---
MS RN NOTES PATRICIA FLORES NOTIFIED OR CT RESULTS.
--- NOTE | 2017-11-24 18:17 | NUR ---
MS RN NOTES PATIENT IN BED RESTING NO SOB OR ACUTE DISTRESS NOTED. AL DUE MEDICATIONS ADMINISTERED. ALL NEEDS MET WILL ENDORSE TO PM SHIFT.
--- NOTE | 2017-11-24 19:25 | NUR ---
MS RN OPENING NOTES: RECEIVED PT WITH DTR AT BEDSIDE. PT IS AWAKE AND IS A/OX3. PT ON ROOM AIR AND TOLERATING WELL. PT HAS IV ON L AC AND IS BEING INFUSED WITH IV NS AT 75ML/HR. CALL LIGHT WITHIN PT'S REACH. BED KEPT IN LOW, LOCKED POSITION, AND SIDE RAILSX 2UP. WILL CONTINUE TO MONITOR PT.
[2017-11-24 20:00] VITALS: BP 128/64
[2017-11-24] MEDS: CEFEPIME 1 GM in IV D5W 50 ML IV SCH (20:45)
[2017-11-24] MEDS: TAMSULOSIN 0.4 MG CAP.SR.24H PO SCH (21:29)
[2017-11-24] MEDS: DOXYCYCLINE HYCLATE (100 MG) 100 MG TABLET PO SCH (21:29)
[2017-11-24] MEDS: SIMVASTATIN 20 MG TABLET PO SCH (21:29)
--- NOTE | 2017-11-24 21:36 | NUR ---
MS RN NOTES: BLOOD SUGAR WAS 167. EXPLAINED TO PT THAT HE NEEDS 3 UNITS OF INSULIN. EXPLAINED TO PT RISKS AND BENEFITS OF INSULIN X3 AND PT REFUSING. PT STATES HE DOES NOT TAKE ANY INSULIN AT HOME. WILL CONTINUE TO MONITOR PT.
[2017-11-25] MEDS: IV NS 0.9% 1,000 ML IV PRN ×2 (04:45→20:15)
[2017-11-25] MEDS: BLOOD SUGAR DIAGNOSTIC 1 EACH STRIP IN SCH ×4 (06:08→22:00)
[2017-11-25] MEDS: INSULIN REGULAR, HUMAN 100 UNIT/ML 3 ML VIAL SQ PRN (06:10)
--- NOTE | 2017-11-25 06:45 | NUR ---
MS RN CLOSING NOTES: ALL NEEDS WERE ATTENDED AND ANTICIPATED FOR. PT AWAKE AND IS LAYING IN BED AND IS ON ROOM AIR. URINAL AT BEDSIDE. IV REMAINS INTACT ON L AC AND IS BEING INFUSED WITH IV NS AT 75ML/HR. PT REQUESTS FOR THE DOOR TO BE CLOSED. CALL LIGHT WITHIN PT'S REACH. BED KEPT IN LOW, LOCKED POSITION, AND SIDE RAILS X2 UP . WILL ENDORSE TO AM NURSE FOR CARLY.
[2017-11-25 06:50] LABS: CALCIUM, SERUM 9.8 mg/dL (8.5-10.1); CARBON DIOXIDE 26 mmol/L (21-32); CHLORIDE 99 mmol/L (98-107); CREATININE 0.8 mg/dL (0.6-1.3); GLUCOSE 127 mg/dL (74-106); POTASSIUM 3.7 mmol/L (3.5-5.1); SODIUM SERUM 134 mmol/L (136-145); UREA NITROGEN, BLOOD 15 mg/dL (7-18)
[2017-11-25 07:01] LABS: BASOPHILS % (AUTO) 0.2 % (0.0-2.0); EOSINOPHILS % (AUTO) 0.6 % (0.0-6.0); HEMATOCRIT 34 % (39-51); HEMOGLOBIN 12.1 g/dL (13.5-17.5); LYMPHOCYTES # (AUTO) 2.9 /CMM (0.8-4.8); LYMPHOCYTES % (AUTO) 14.3 % (20.0-44.0); MEAN CORPUSCULAR HEMOGLOBIN 29 PG (26.0-33.0); MEAN CORPUSCULAR HGB CONC 35 g/dl (31.0-36.0); MEAN CORPUSCULAR VOLUME 81 fL (80-96); MONOCYTES # (AUTO) 2.2 /CMM (0.1-1.30); MONOCYTES % (AUTO) 11.2 % (2.0-12.0); NEUTROPHILS # (AUTO) 14.7 /CMM (1.8-8.9); NEUTROPHILS % (AUTO) 73.7 % (43.0-81.0); PLATELET COUNT (AUTO) 314 /CMM (150-450); RDW COEFFICIENT OF VARIATION 14.3 (11.5-15.0); RED BLOOD CELL COUNT(AUTO) 4.22 MIL/uL (4.5-6.0); WHITE BLOOD COUNT (AUTO) 19.9 K/uL (4.3-11.0)
[2017-11-25 08:00] VITALS: BP_SYST 120; BP_DIAS 64; BP_DIAS 66
--- NOTE | 2017-11-25 08:04 | NUR ---
MS RN OPENING NOTES RECEIVED PT LAYING IN BED RESTING COMFORTABLY. PT IS A/O X3, AFEBRILE. RESPIRATIONS ARE EVEN AND UNLABORED, NOT IN ANY ACUTE DISTRESS NOTED. DENIES ANY PAIN AT THIS TIME. NO C/O SOB, N/V NOTED. IV SITE INTACT, NO INFILTRATION NOTED. DRESSING KEPT CLEAN AND DRY. SAFETY MEASURES ARE IN PLACE. INSTRUCTED PT TO USE CALL LIGHT WHEN ASSISTANCE IS NEEDED, CALL LIGHT IS LEFT WITHIN REACH. WILL CONTINUE TO MONITOR THROUGHOUT SHIFT FOR CONTINUITY OF CARE.
[2017-11-25] MEDS: CEFEPIME 1 GM in IV D5W 50 ML IV SCH ×2 (08:45→20:16)
[2017-11-25] MEDS: ESCITALOPRAM OXALATE (10 MG) 10 MG TABLET PO SCH (08:46)
[2017-11-25] MEDS: DOXYCYCLINE HYCLATE (100 MG) 100 MG TABLET PO SCH ×2 (08:46→20:29)
[2017-11-25] MEDS: DONEPEZIL 5 MG TABLET PO SCH (08:46)
[2017-11-25] MEDS: FLUOXETINE HCL 20 MG CAPSULE PO SCH (08:46)
[2017-11-25] MEDS: FAMOTIDINE (20 MG) 20 MG TABLET PO SCH (08:46)
[2017-11-25] MEDS: FENOFIBRATE NANOCRYS (145 MG) 145 MG TABLET PO SCH (08:46)
[2017-11-25] MEDS: MEMANTINE HCL 5 MG TABLET PO SCH ×2 (08:46→16:35)
[2017-11-25] MEDS: METOPROLOL SUCCINATE 25 MG TAB.SR.24H PO SCH (08:47)
[2017-11-25] MEDS: ATENOLOL 25 MG TABLET PO SCH (08:47)
[2017-11-25] MEDS: FINASTERIDE (5 MG) 5 MG TABLET PO SCH (08:47)
[2017-11-25] MEDS: RAMIPRIL 1.25 MG CAPSULE PO SCH (08:52)
--- NOTE | 2017-11-25 12:22 | NUR ---
MS RN NOTES BLOOD SUGAR 139. PT REFUSED 2 UNITS IF INSULIN. NO S/SX OF HYPO/HYPERGLYCEMIA NOTED. WILL CONTINUE TO MONITOR CLOSELY.
[2017-11-25 16:00] VITALS: BP 116/65
--- NOTE | 2017-11-25 16:37 | NUR ---
MS RN NOTES BLOOD SUGAR 141. PT REFUSED 2 UNITS OF INSULIN. NO S/SX OF HYPO/HYPERGLYCEMIA NOTED. WILL CONTINUE TO MONITOR.
--- NOTE | 2017-11-25 18:38 | NUR ---
MS RN CLOSING NOTES ALL DUE MEDS GIVEN, NEEDS MET AND ANTICIPATED. PT REMAINS A/O X3, AFEBRILE. RESPIRATIONS ARE EVEN AND UNLABORED. IV SITE INTACT, NO INFILTRATION NOTED. DRESSING KEPT CLEAN AND DRY. INFUSING NS @75ML/HR, TOLERATING WELL. DENIES ANY PAIN, NO C/O SOB, N/V. INSTRUCTED PT TO USE CALL LIGHT WHEN ASSISTANCE IS NEEDED, CALL LIGHT IS LEFT WITHIN REACH. WILL SAFETY MEASURES ARE IN PLACE. WILL ENDORSE TO NEXT SHIFT FOR CONTINUITY OF CARE.
--- NOTE | 2017-11-25 19:00 | NUR ---
recieved alert and orientated. speech clear moving all extremities. verbalizing his needs
[2017-11-25 20:31] VITALS: BP 124/65
[2017-11-25 21:17] VITALS: BP 124/65
[2017-11-25] MEDS: SIMVASTATIN 20 MG TABLET PO SCH (22:31)
[2017-11-25] MEDS: TAMSULOSIN 0.4 MG CAP.SR.24H PO SCH (22:31)
--- NOTE | 2017-11-26 05:33 | NUR ---
CLOSING NOTES: SLEPT THRU THE NIGHT AT LEAST 10 HOURS. USING THE URINAL. VERBALIZES HIS NEEDS NO MOTED SOB
[2017-11-26] MEDS: BLOOD SUGAR DIAGNOSTIC 1 EACH STRIP IN SCH ×4 (06:53→21:42)
--- NOTE | 2017-11-26 07:54 | NUR ---
OPENING NOTE PT IS A/O X3, DENIES PAIN. NO C/O OF PAIN, DENIES SOB. IV INTACT, NS 75ML/HR. WILL CONTINUE TO MONITOR PT THROUGHOUT SHIFT. CALL LIGHT LEFT WITHIN REACH.
[2017-11-26 08:00] VITALS: BP 118/61
[2017-11-26] MEDS: FAMOTIDINE (20 MG) 20 MG TABLET PO SCH (09:02)
[2017-11-26] MEDS: ESCITALOPRAM OXALATE (10 MG) 10 MG TABLET PO SCH (09:02)
[2017-11-26] MEDS: MEMANTINE HCL 5 MG TABLET PO SCH ×2 (09:02→16:40)
[2017-11-26] MEDS: FENOFIBRATE NANOCRYS (145 MG) 145 MG TABLET PO SCH (09:02)
[2017-11-26] MEDS: ATENOLOL 25 MG TABLET PO SCH (09:04)
[2017-11-26] MEDS: METOPROLOL SUCCINATE 25 MG TAB.SR.24H PO SCH (09:04)
[2017-11-26] MEDS: RAMIPRIL 1.25 MG CAPSULE PO SCH (09:04)
[2017-11-26] MEDS: DONEPEZIL 5 MG TABLET PO SCH (09:04)
[2017-11-26] MEDS: FINASTERIDE (5 MG) 5 MG TABLET PO SCH (09:05)
[2017-11-26] MEDS: DOXYCYCLINE HYCLATE (100 MG) 100 MG TABLET PO SCH ×2 (09:05→20:09)
[2017-11-26] MEDS: FLUOXETINE HCL 20 MG CAPSULE PO SCH (09:05)
[2017-11-26] MEDS: CEFEPIME 1 GM in IV D5W 50 ML IV SCH (09:08)
[2017-11-26 15:50] VITALS: BP 99/59
[2017-11-26 16:00] VITALS: BP 107/56
[2017-11-26 16:10] VITALS: BP 101/60
[2017-11-26] MEDS ORDERED: IV NS 0.9% 100 ML BAG IV ONE (16:30)
[2017-11-26] MEDS ORDERED: IV NS 0.9% 500 ML IV ONE (17:00)
--- NOTE | 2017-11-26 17:45 | NUR ---
RN MS NOTES AT 1550, FOUND PT LYING ON THE FLOOR NEAR BATHROOM DOOR, PT IS AWAKE AND ALERT, ABLE TO VERBALIZE WHAT HAPPENED THROUGH AN INDUSTRIAL FURNACE FABRICATOR, PT STATED THAT HE IS ABOUT TO GO TO THE BATHROOM AND FELT WEAK AND DIZZY AND HE FELL, HE SAID HE HIT HIS HEAD BUT DENIES ANY HEADACHE OR PAIN, ABLE TO MOVE ALL EXTREMITIES WITHOUT PAIN OR DIFFICULTY, ABLE TO STAND UP WITH ASSISTANCE, PSYCHOLOGIST ENGINEERING TOO PT TO THE BATHROOM AND AFTERWARDS ASSISTED TO BED, MADE COMFORTABLE, PT DENIES PAIN OR DISCOMFORT ANT THIS TIME, VITAL SIGNS TAKEN AND RECORDED, REMINDED PT TO CALL FOR ASSISTANCE IF HE WANTS TO GO TO THE BATHROOM, VERBALIZED UNDERSTANDING, TURNED BED ALARM ON, DR. GALLEGOS INFORMED OF THE FALL INCIDENT, MD AWARE THAT PT HIT HIS HEAD BUT NOT COMPLAINING OF PAIN, NOT IN DISTRESS, ORDERED TO GIVE NS BOLUS 500ML AND MONITOR FOR CHANGES, DAUGHTER ANA LILIA INFORMED OF THE INCIDENT.
[2017-11-26 18:30] VITALS: BP 100/56
[2017-11-26] MEDS: IV NS 0.9% 1,000 ML IV PRN (18:44)
--- NOTE | 2017-11-26 19:00 | NUR ---
RN MS NOTES PT IN BED, AWAKE, ALERT AND ORIENTED, NO COMPLAINT OF PAIN, RESPIRATIONS NORMAL, CALL LIGHT WITHIN REACH, BED ALARM KEPT ON AT ALL TIMES, IV FLUIDS INFUSING WELL, VISITED BY DAUGHTER AND SON, PT ABLE TO EAT, PM MEDS GIVEN, PT SEEN BY DR. REBOLLEDO, PLAN OF CARE DISCUSSED BY DR. REBOLLEDO WITH DESHAWN SUNG, ALL NEEDS ATTENDED.
--- NOTE | 2017-11-26 19:00 | NUR ---
MS RN OPENING NOTE Patient was seen in bed in high-Rivera's position AAOx3, breathing on RA with no SOB, and no signs of acute distress. NS at 75ml/hr is running through the left AC. Incentive spirometer is at the bedside. Bed is in the low/locked position, two side rails up, and call saenz within reach. Patient has no immediate needs or concerns at this time. Will continue to monitor.
[2017-11-26 20:00] VITALS: BP 106/50
[2017-11-26] MEDS: CEFEPIME 2 GM in IV D5W 100 ML IV SCH (20:10)
[2017-11-26] MEDS: SIMVASTATIN 20 MG TABLET PO SCH (21:35)
[2017-11-26] MEDS: TAMSULOSIN 0.4 MG CAP.SR.24H PO SCH (21:36)
[2017-11-26] MEDS: INSULIN REGULAR, HUMAN 100 UNIT/ML 3 ML VIAL SQ PRN (21:44)
[2017-11-27] MEDS: BLOOD SUGAR DIAGNOSTIC 1 EACH STRIP IN SCH ×3 (06:37→17:27)
[2017-11-27 07:00] LABS: BASOPHILS % (AUTO) 0.1 % (0.0-2.0); EOSINOPHILS % (AUTO) 0.6 % (0.0-6.0); HEMATOCRIT 35 % (39-51); HEMOGLOBIN 11.7 g/dL (13.5-17.5); LYMPHOCYTES # (AUTO) 2.5 /CMM (0.8-4.8); LYMPHOCYTES % (AUTO) 13.2 % (20.0-44.0); MEAN CORPUSCULAR HEMOGLOBIN 28 PG (26.0-33.0); MEAN CORPUSCULAR HGB CONC 33 g/dl (31.0-36.0); MEAN CORPUSCULAR VOLUME 86 fL (80-96); MONOCYTES # (AUTO) 1.9 /CMM (0.1-1.30); MONOCYTES % (AUTO) 10.2 % (2.0-12.0); NEUTROPHILS # (AUTO) 14.3 /CMM (1.8-8.9); NEUTROPHILS % (AUTO) 75.9 % (43.0-81.0); PLATELET COUNT (AUTO) 321 /CMM (150-450); RDW COEFFICIENT OF VARIATION 15.3 (11.5-15.0); RED BLOOD CELL COUNT(AUTO) 4.13 MIL/uL (4.5-6.0); WHITE BLOOD COUNT (AUTO) 18.8 K/uL (4.3-11.0)
--- NOTE | 2017-11-27 07:00 | NUR ---
MS RN CLOSING NOTE Patient was seen lying in bed AAOx3, breathing on RA with no SOB, and no signs of acute distress. Patient slept intermittently overnight but had no complications and remains in stable condition. NS at 75ml/hr is running through the left AC. Bed is low/locked, two side rails up, call saenz within reach. Patient needs have been addressed this shift. Patient care endorsed to day shift RN.
--- NOTE | 2017-11-27 07:08 | NUR ---
MS RN OPENING NOTE RECEIVED BEDSIDE SBAR REPORT ON THE PATIENT. PATIENT IS A/O X4, ASLEEP, AWAKEN EASILY IN BED.KITTITIAN SPEAKING ONLY. BED IS LOCKED IN LOWEST POSITION, SIDE RAILS UP X3,BED ALARM IS ON. PATIENT IS AMBULATORY WITH ASSIST. CALL LIGHT WITHIN REACH. EDUCATED THE PATIENT TO CALL FOR ASSISTANCE USING THE CALL LIGHT, AND NOT TO GET OUT OF THE BED WITHOUT NURSES SUPERVISION. PATIENT VERBALIZED UNDERSTANDING. CHEST RISING EQUALLY, BILATERALLY. DENIES PAIN/DISCOMFORT AT THIS TIME. WILL CONTINUE TO ASSESS/MONITOR THROUGHOUT THE SHIFT.
[2017-11-27 07:10] LABS: ALANINE AMINOTRANSFERASE 43 U/L (12-78); ALBUMIN 2.1 g/dL (3.4-5.0); ALKALINE PHOSPHATASE 68 U/L (46-116); ASPARTATE AMINOTRANSFERASE 33 U/L (15-37); BILIRUBIN,TOTAL 0.8 mg/dL (0.2-1.0); CARBON DIOXIDE 25 mmol/L (21-32); CHLORIDE 100 mmol/L (98-107); CREATININE 0.8 mg/dL (0.6-1.3); GLUCOSE 108 mg/dL (74-106); LIPASE 109 U/L (73-393); MAGNESIUM 1.6 mg/dL (1.8-2.4); PHOSPHORUS 2.8 mg/dL (2.5-4.9); POTASSIUM 3.5 mmol/L (3.5-5.1); SODIUM SERUM 134 mmol/L (136-145); TOTAL PROTEIN, SERUM 6.5 g/dL (6.4-8.2); UREA NITROGEN, BLOOD 15 mg/dL (7-18)
[2017-11-27 08:00] VITALS: BP 111/61
[2017-11-27] MEDS: CEFEPIME 2 GM in IV D5W 100 ML IV SCH (08:40)
[2017-11-27] MEDS: ESCITALOPRAM OXALATE (10 MG) 10 MG TABLET PO SCH (08:42)
[2017-11-27] MEDS: IV NS 0.9% 1,000 ML IV PRN (08:50)
[2017-11-27] MEDS: MEMANTINE HCL 5 MG TABLET PO SCH ×2 (08:56→17:26)
[2017-11-27] MEDS: RAMIPRIL 1.25 MG CAPSULE PO SCH (08:57)
[2017-11-27] MEDS: FLUOXETINE HCL 20 MG CAPSULE PO SCH (08:58)
[2017-11-27] MEDS: FENOFIBRATE NANOCRYS (145 MG) 145 MG TABLET PO SCH (08:58)
[2017-11-27] MEDS: FAMOTIDINE (20 MG) 20 MG TABLET PO SCH (08:58)
[2017-11-27] MEDS: DOXYCYCLINE HYCLATE (100 MG) 100 MG TABLET PO SCH (08:58)
[2017-11-27] MEDS: FINASTERIDE (5 MG) 5 MG TABLET PO SCH (08:59)
[2017-11-27] MEDS: ATENOLOL 25 MG TABLET PO SCH (08:59)
[2017-11-27] MEDS: METOPROLOL SUCCINATE 25 MG TAB.SR.24H PO SCH (09:00)
[2017-11-27] MEDS: DONEPEZIL 5 MG TABLET PO SCH (09:11)
[2017-11-27] MEDS: Magnesium 1GM/D5W 100ML PREMIX 100 ML IV SCH ×2 (10:23→11:38)
[2017-11-27] MEDS: INSULIN REGULAR, HUMAN 100 UNIT/ML 3 ML VIAL SQ PRN ×2 (12:50→17:32)
[2017-11-27] MEDS ORDERED: DOXY100T2 PO (13:40)
[2017-11-27 16:00] VITALS: BP 103/62
--- NOTE | 2017-11-27 19:45 | NUR ---
FAMILY AT THE BEDSIDE. IV CATHETER REMOVED. OCLUSIVE DRESSING APPLIED. NO EVIDENCE OF BLEEDING. ALL BELONGINGS ARE ACCOUNTED FOR. DR REBOLLEDO CAME AND DISCUSSED TREATMENT PLAN AT THE BEDSIDE WITH THE FAMILY AND THE PATIENT. AMBULANCE IS AT THE BEDSIDE PICKING THE PATIENT UP IN STABLE CONDITION.
== END 2017-11-27 19:15 | DRG 853 ==
LOC: ER 14:48 → TELE 17:56 → MED 11-19 09:07
PROVIDERS: ADMIT Nurse Practitioner Acute Care; ATTEND Nurse Practitioner Acute Care
PROC: 0BD68ZX Extraction of Right Lower Lobe Bronchus, Via Natural or Artificial Opening Endoscopic, Diagnostic (ICD-10-PCS; 2017-11-21)
PROC: 0B9F8ZX Drainage of Right Lower Lung Lobe, Via Natural or Artificial Opening Endoscopic, Diagnostic (ICD-10-PCS; principal; 2017-11-21 14:31)
DX: A41.9 Sepsis, unspecified organism (principal); J18.9 Pneumonia, unspecified organism; N39.0 Urinary tract infection, site not specified; E44.0 Moderate protein-calorie malnutrition; C34.90 Malignant neoplasm of unspecified part of unspecified bronchus or lung; J90 Pleural effusion, not elsewhere classified; J98.11 Atelectasis; C34.91 Malignant neoplasm of unspecified part of right bronchus or lung; C78.7 Secondary malignant neoplasm of liver and intrahepatic bile duct; I25.10 Atherosclerotic heart disease of native coronary artery without angina pectoris; Z95.1 Presence of aortocoronary bypass graft; K21.9 Gastro-esophageal reflux disease without esophagitis; I10 Essential (primary) hypertension; E11.9 Type 2 diabetes mellitus without complications; Z87.891 Personal history of nicotine dependence; D72.829 Elevated white blood cell count, unspecified; D64.9 Anemia, unspecified; Z68.22 Body mass index [BMI] 22.0-22.9, adult; J43.9 Emphysema, unspecified; E78.5 Hyperlipidemia, unspecified; N40.0 Benign prostatic hyperplasia without lower urinary tract symptoms; E87.6 Hypokalemia; R59.0 Localized enlarged lymph nodes
CPT/HCPCS: 36415; 71045-TC; 71260-TC; 80048-TC; 80053-TC; 80061-TC; 80076-TC; 81000-TC; 82728-TC; 82746; 82784; 82962-TC; 83540-TC; 83605-TC; 83690-TC; 83735-TC; 84100-TC; 84155; 84165; 84443-TC; 84484-TC; 85025-TC; 85610-TC; 85730-TC; 86334; 87040-TC; 87081-TC; 87086-TC; 88305-TC; 88312-TC; 88342; A4216; A4606; J0330; J0692; J1815; J1956; J2543; J2920; J3475; J3490; J7030; J7040; J7050; J7060; Q9967; Z7610

== ENCOUNTER 2017-12-03 19:57 | Inpatient (IN) | payer MEDICARE, OTHER ==
[~2017-12-03] VITALS: Ht 162.6 cm; Wt 63.5 kg
[~2017-12-03 19:57] MED LIST changes: +ATEN25TA PO; -DEXL60CA3 PO; +DONE10TA44 PO; +DOXY100T2 PO; +ESCI10TA PO; +FENO134C PO; +FINA5TAB11 PO; +FLUO20CA36 PO; +LINA145C PO; +MEMA28CA PO; +METF500T6 PO; +METO-356 PO; +RAMI2.5C PO; +RANI300C PO; +SIMV20TA6 PO; -TAMS-12 PO; +TAMS0.4C34 PO
--- NOTE | 2017-12-03 19:57 | NUR ---
VERONICA FROM [facility]. SENT PT FOR ELEVATED HR,WBC. PT IS BRUNEIAN SPEAKING PRIMARILY BUT A/OX3 ACCORDING TO MUSIC VIDEO PRODUCER. PT IS TACHYCARDIC, HYPOTENSIVE, TAHCYPNIC AND FEBRILE UPON ARRIVAL. WILL CONTINUE TO MONITOR FOR ANY CHANGES DURING THE SHIFT.
--- NOTE | 2017-12-03 19:58 | NUR ---
ER MD CONTRERAS AT BEDSIDE FOR EVAL
[2017-12-03 20:00] VITALS: BP 147/68
--- NOTE | 2017-12-03 20:55 | NUR ---
EKG AT BEDSIDE
--- NOTE | 2017-12-03 21:00 | NUR ---
BLOOD SENT TO LAB WITH DIRECTOR OF COUNTERINTELLIGENCE
[2017-12-03 21:01] LABS: BASOPHILS # (AUTO) 0.1 /CMM (0.0-0.2); BASOPHILS % (AUTO) 0.4 % (0.0-2.0); EOSINOPHILS % (AUTO) 0.5 % (0.0-6.0); HEMATOCRIT 37 % (39-51); HEMOGLOBIN 13.1 g/dL (13.5-17.5); LYMPHOCYTES # (AUTO) 3.2 /CMM (0.8-4.8); LYMPHOCYTES % (AUTO) 14.3 % (20.0-44.0); MEAN CORPUSCULAR HEMOGLOBIN 29 PG (26.0-33.0); MEAN CORPUSCULAR HGB CONC 35 g/dl (31.0-36.0); MEAN CORPUSCULAR VOLUME 82 fL (80-96); MONOCYTES # (AUTO) 1.6 /CMM (0.1-1.30); NEUTROPHILS # (AUTO) 17.3 /CMM (1.8-8.9); NEUTROPHILS % (AUTO) 77.8 % (43.0-81.0); PLATELET COUNT (AUTO) 409 /CMM (150-450); RDW COEFFICIENT OF VARIATION 14.6 (11.5-15.0); RED BLOOD CELL COUNT(AUTO) 4.56 MIL/uL (4.5-6.0); WHITE BLOOD COUNT (AUTO) 22.3 K/uL (4.3-11.0)
--- NOTE | 2017-12-03 21:09 | NUR ---
CXR AT BEDSIDE
[2017-12-03] MEDS ORDERED: LIDOCAINE 2% JEL UROJET 10 ML MM ONE (21:13)
[2017-12-03 21:20] LABS: INR 1.04 (0.85-1.15)
[2017-12-03 21:24] LABS: ALANINE AMINOTRANSFERASE 41 U/L (12-78); ALBUMIN 2.5 g/dL (3.4-5.0); ALKALINE PHOSPHATASE 89 U/L (46-116); ASPARTATE AMINOTRANSFERASE 25 U/L (15-37); BILIRUBIN,DIRECT 0.2 mg/dL (0.0-0.2); BILIRUBIN,TOTAL 0.5 mg/dL (0.2-1.0); CALCIUM, SERUM 11.2 mg/dL (8.5-10.1); CARBON DIOXIDE 29 mmol/L (21-32); CHLORIDE 97 mmol/L (98-107); CREATININE 1.3 mg/dL (0.6-1.3); GLUCOSE 160 mg/dL (74-106); POTASSIUM 4.2 mmol/L (3.5-5.1); SODIUM SERUM 131 mmol/L (136-145); TOTAL PROTEIN, SERUM 7.2 g/dL (6.4-8.2); UREA NITROGEN, BLOOD 33 mg/dL (7-18)
[2017-12-03 21:26] LABS: TROPONIN I 0.041 ng/mL (0.00-0.056)
[2017-12-03] MEDS ORDERED: IV NS 0.9% 1,000 ML BAG IV ONE (21:30)
[2017-12-03] MEDS ORDERED: CEFEPIME 1 GM in IV D5W 50 ML IV ONE (21:30)
[2017-12-03] MEDS ORDERED: VANCOMYCIN 1 GM in IV D5W 250 ML IV ONE (21:30)
--- NOTE | 2017-12-03 21:31 | NUR ---
PAGED [employer] FOR PANEL - PRIEST PATRICIA FLORES
[2017-12-03] MEDS ORDERED: VANCOMYCIN 1 GM VIAL ONE (21:47)
[2017-12-03] MEDS ORDERED: CEFEPIME 1 GM VIAL ONE (21:47)
[2017-12-03] MEDS ORDERED: ENOXAPARIN SODIUM 60 MG/0.6 ML DISP.SYRIN SQ ONE (22:00)
--- NOTE | 2017-12-03 22:00 | NUR ---
REPORT TO HARLEY
[2017-12-03 22:04] LABS: APPEARANCE,URINE CLEAR (CLEAR); BILIRUBIN,URINE NEGATIVE (NEGATIVE); BLOOD, URINE 1+ Ery/uL (NEGATIVE); COLOR,URINE YELLOW (YELLOW); KETONES,URINE NEGATIVE (NEGATIVE); LEUKOCYTE ESTERASE ,URINE NEGATIVE (NEGATIVE); NITRITE, URINE NEGATIVE (NEGATIVE); PH,URINE 5.5 (5.0-8.0); PROTEIN,URINE NEGATIVE (NEGATIVE); UGLUCOSE NEGATIVE (NEGATIVE); UROBILINOGEN,URINE 0.2 EU/dL (0.2)
[2017-12-03] MEDS ORDERED: ENOXAPARIN SODIUM 80 MG/0.8 ML DISP.SYRIN SQ ONE (22:05)
--- NOTE | 2017-12-03 22:30 | NUR ---
RN ADMITTING NOTES Received from ER, ACLS protocol. Patient is alert and oriented. Greek speaking. Denies any pain and discomfort. Afib on monitor with HR in the 150s, denies SOB and denies chest discomfort, no pain. Patient refused to place O2 cannula, respiration is even and unlabored with no distress, saturating at 95% on room air. Diminished breath sounds on RLL. Skin assessment done, pictures taken and filed in chart. oriented to unit protocols. needs anticipated and met. call light in reach. will continue to monitor. called Petrona Hammond NP, awaiting admit orders.
[2017-12-03 22:39] VITALS: BP 147/68
[2017-12-03 22:43] LABS: BACTERIA,URINE Few /HPF (None Seen); MUCUS,URINE Few /LPF (None Seen); SQUAMOUS EPITHELIAL CELL,UR Few /HPF (None Seen); YEAST,URINE Few /HPF (None Seen)
[2017-12-03] MEDS ORDERED: IV NS 0.9% 1,000 ML IV PRN (22:51)
[2017-12-03 22:58] LABS: LYMPHOCYTES % (MANUAL) 15 % (16-48); MONOCYTES % (MANUAL) 7 % (0-11.0); NEUTROPHILS % (MANUAL) 78 (42-76)
[2017-12-03] MEDS ORDERED: Z GUARD REMEDY 2 OZ OINT TP PRN (23:00)
[2017-12-03] MEDS ORDERED: MAG HYDROX/AL HYDROX/SIMETH 30 ML UDC PO PRN (23:00)
[2017-12-03] MEDS ORDERED: MAGNESIUM HYDROXIDE 30 ML UDC PO PRN (23:00)
[2017-12-03] MEDS ORDERED: CEFEPIME 1 GM in IV D5W 50 ML IV SCH (23:00)
[2017-12-03] MEDS ORDERED: ACETAMINOPHEN 325 MG TABLET PO PRN (23:00)
[2017-12-03] MEDS ORDERED: HYDROCODONE/APAP 5/325MG 1 EACH TABLET PO PRN (23:00)
[2017-12-03] MEDS ORDERED: ONDANSETRON HCL/PF 4 MG/2 ML VIAL IVP PRN (23:00)
[2017-12-03] MEDS ORDERED: DILTIAZEM HCL 25 MG IV IV ONE (23:30)
--- NOTE | 2017-12-03 23:45 | NUR ---
rn notes Received reflex lactic value of 2.8, trending down. HIPOLITO Russ made aware. NNO. IVF as ordered.
[2017-12-04] VITALS (7 sets, daily range): BP systolic 95–111; BP diastolic 47–57
--- NOTE | 2017-12-04 02:32 | NUR ---
RN notes Diltiazem given as ordered x1. Patient's HR now in the high 80-90s. Afib to Aflutter. Patient with no acute distress. Denies any discomfort. Alert and oriented.
[2017-12-04] MEDS: CEFEPIME 1 GM in IV D5W 50 ML IV SCH ×3 (05:37→21:39)
[2017-12-04 06:18] LABS: BASOPHILS % (AUTO) 0.3 % (0.0-2.0); EOSINOPHILS % (AUTO) 0.6 % (0.0-6.0); HEMATOCRIT 31 % (39-51); HEMOGLOBIN 10.2 g/dL (13.5-17.5); LYMPHOCYTES # (AUTO) 2.5 /CMM (0.8-4.8); LYMPHOCYTES % (AUTO) 14.4 % (20.0-44.0); MEAN CORPUSCULAR HEMOGLOBIN 29 PG (26.0-33.0); MEAN CORPUSCULAR HGB CONC 33 g/dl (31.0-36.0); MEAN CORPUSCULAR VOLUME 86 fL (80-96); MONOCYTES # (AUTO) 1.6 /CMM (0.1-1.30); MONOCYTES % (AUTO) 9.6 % (2.0-12.0); NEUTROPHILS # (AUTO) 12.9 /CMM (1.8-8.9); NEUTROPHILS % (AUTO) 75.1 % (43.0-81.0); PLATELET COUNT (AUTO) 319 /CMM (150-450); RDW COEFFICIENT OF VARIATION 15.7 (11.5-15.0); RED BLOOD CELL COUNT(AUTO) 3.54 MIL/uL (4.5-6.0); WHITE BLOOD COUNT (AUTO) 17.2 K/uL (4.3-11.0)
--- NOTE | 2017-12-04 06:18 | NUR ---
RN CLOSING NOTES Patient with no acute changes. Remains Afib-Aflutter with HR in the 80-100s. Remains on room air and refusing O2 supplement. occasional productive cough noted, small, frothy sputum; specimen for sputum cx obtained, sent to lab. IVF as ordered, ATB given. Needs anticipated and met. safety and comfort ensured. will endorse accordingly for continuity of care.
[2017-12-04 06:35] LABS: CHOLESTEROL 108 mg/dL (<200); HDL CHOLESTEROL 31 mg/dL (40-60); LDL 65 mg/dL (0-99); THYROID STIMULATING HORMONE 1.585 uIU/mL (0.358-3.74); TRIGLYCERIDES 69 mg/dL (30-150)
[2017-12-04 06:37] LABS: CALCIUM, SERUM 9.3 mg/dL (8.5-10.1); CARBON DIOXIDE 26 mmol/L (21-32); CHLORIDE 103 mmol/L (98-107); GLUCOSE 111 mg/dL (74-106); MAGNESIUM 1.7 mg/dL (1.8-2.4); POTASSIUM 3.7 mmol/L (3.5-5.1); SODIUM SERUM 137 mmol/L (136-145); UREA NITROGEN, BLOOD 24 mg/dL (7-18)
--- NOTE | 2017-12-04 07:30 | NUR ---
SUPERVISOR ELEMENTARY EDUCATION OPENING NOTES RECEIVED PATIENT AWAKE IN BED RESTING. A/O X3, K[place] SPEAKING, SPEAK A LITTLE BASIC DANISH. ON ROOM AIR, TOLERATING WELL AT 95% SATURATION. NO ACUTE DISTRESS, NO SOB. DENIED PAIN OR DISCOMFORT. ON TELEMONITOR, AFLUTTER HR 104. IV SITE INTACT AND PATENT. KEPT PATIENT SAFE AND COMFORTABLE. BED IN LOW/LOCKED POSITION, SIDERAILS UPX2, CALL LIGHT IN REACH. WILL CONTINUE TO MONITOR ACCORDINGLY.
[2017-12-04] MEDS ORDERED: FEE PK DOSING 1 MIN EA MC ONE (08:11)
[2017-12-04] MEDS: MEMANTINE HCL 5 MG TABLET PO SCH ×2 (08:46→16:14)
[2017-12-04] MEDS: DOCUSATE SODIUM 100 MG CAPSULE PO SCH ×2 (08:47→16:15)
[2017-12-04] MEDS: FAMOTIDINE (20 MG) 20 MG TABLET PO SCH (08:51)
[2017-12-04] MEDS: FLUOXETINE HCL 20 MG CAPSULE PO SCH (08:52)
[2017-12-04] MEDS: ESCITALOPRAM OXALATE (10 MG) 10 MG TABLET PO SCH (08:52)
[2017-12-04] MEDS: FINASTERIDE (5 MG) 5 MG TABLET PO SCH (08:52)
[2017-12-04] MEDS: DONEPEZIL 5 MG TABLET PO SCH (08:53)
[2017-12-04] MEDS ORDERED: METOPROLOL SUCCINATE 25 MG TAB.SR.24H PO SCH (09:00)
[2017-12-04] MEDS ORDERED: ATENOLOL 25 MG TABLET PO SCH (09:00)
[2017-12-04] MEDS ORDERED: RAMIPRIL 5 MG CAPSULE PO SCH (09:00)
[2017-12-04] MEDS ORDERED: FENOFIBRATE NANOCRYS (145 MG) 145 MG TABLET PO SCH (09:00)
[2017-12-04] MEDS ORDERED: RAMIPRIL 1.25 MG CAPSULE PO SCH (09:43)
--- NOTE | 2017-12-04 10:00 | NUR ---
RN NOTES PATIENT HR 160's WITH AFLUTTER AND AFIB. OC=151/68. PATIENT IS ASYMPTOMATIC. NOTIFIED DR RHODES AND DR CASTREJON. DR CASTREJON CHECKED PATIENT AT BEDSIDE, NEW ORDERS NOTED AND CARRIED OUT.
[2017-12-04] MEDS: IV NS 0.9% 1,000 ML IV PRN ×2 (10:25→20:20)
[2017-12-04] MEDS: VANCOMYCIN 1 GM in IV D5W 250 ML IV SCH ×2 (10:39→21:39)
[2017-12-04] MEDS: DILTIAZEM HCL CD 240 MG PO SCH (10:43)
[2017-12-04] MEDS: Magnesium 1GM/D5W 100ML PREMIX 100 ML IV SCH ×2 (11:57→13:42)
[2017-12-04] MEDS ORDERED: GUAIFENESIN 300 MG/15 ML UDC PO PRN (14:00)
[2017-12-04] MEDS: IPRATROPIUM NEB FS 0.5 MG/2.5 ML AMPUL.NEB NEB SCH ×2 (16:51→19:42)
--- NOTE | 2017-12-04 19:08 | NUR ---
FIRE ALARM REPAIRER CLOSING NOTES PATIENT IN STABLE CONDITION. ALL NEEDS ATTENDED AND PROVIDED. KEPT PATIENT SAFE AND COMFORTABLE. TURNED AND REPOSITIONED EVERY 2HRS NEEDED. BED IN LOW/LOCKED POSITION, SIDERAILS UPX2, HOB ELEVATED, CALL LIGHT IN REACH. ENDORSED TO NIGHT RN FOR CARLY.
--- NOTE | 2017-12-04 19:50 | NUR ---
TRANSPORTATION EQUIPMENT PAINTER OPENING NOTES RECEIVED PATIENT AWAKE IN BED RESTING. A/O X3, SAMI SPEAKING, ON ROOM AIR, TOLERATING WELL AT 95% SATURATION. NO ACUTE DISTRESS, NO SOB. DENIED PAIN OR DISCOMFORT. ON TELEMONITOR, AFLUTTER HR 100'S. IV SITE INTACT AND PATENT. KEPT PATIENT SAFE AND COMFORTABLE. BED IN LOW/LOCKED POSITION, SIDE RAILS UPX2, CALL LIGHT IN REACH. WILL CONTINUE TO MONITOR ACCORDINGLY.
[2017-12-04] MEDS: TAMSULOSIN 0.4 MG CAP.SR.24H PO SCH (21:43)
[2017-12-04] MEDS ORDERED: SIMVASTATIN 20 MG TABLET PO SCH (22:00)
[2017-12-05] VITALS: BP_SYST 100; BP_SYST 109; BP_DIAS 54; BP_DIAS 57
[2017-12-05] MEDS: HYDROCODONE/APAP 10/325MG 1 EA TABLET PO PRN ×2 (00:16→21:46)
[2017-12-05] MEDS: IPRATROPIUM NEB FS 0.5 MG/2.5 ML AMPUL.NEB NEB SCH ×4 (00:59→19:16)
[2017-12-05] MEDS: IV NS 0.9% 1,000 ML IV PRN (03:16)
[2017-12-05 04:00] VITALS: BP_SYST 89; BP_SYST 97; BP_DIAS 58
[2017-12-05] MEDS: CEFEPIME 1 GM in IV D5W 50 ML IV SCH ×3 (04:02→21:40)
--- NOTE | 2017-12-05 06:26 | NUR ---
RN CLOSING NOTE PT ASSISTED W/ADL'S AMBULATORY W/ASSIST, UNSTEADY GAIT, NON COMPLIANT WITH CARE, OFFERED BED BATH REFUSED X3 RISK AND BENEFIT EXPLAINED, WILL ENDORSE TO AM SHIFT NURSE TO F/U.
[2017-12-05 06:38] LABS: BASOPHILS % (AUTO) 0.1 % (0.0-2.0); EOSINOPHILS % (AUTO) 0.3 % (0.0-6.0); HEMATOCRIT 31 % (39-51); HEMOGLOBIN 10.1 g/dL (13.5-17.5); LYMPHOCYTES % (AUTO) 10.3 % (20.0-44.0); MEAN CORPUSCULAR HEMOGLOBIN 28 PG (26.0-33.0); MEAN CORPUSCULAR HGB CONC 32 g/dl (31.0-36.0); MEAN CORPUSCULAR VOLUME 87 fL (80-96); MONOCYTES # (AUTO) 1.6 /CMM (0.1-1.30); MONOCYTES % (AUTO) 8.3 % (2.0-12.0); PLATELET COUNT (AUTO) 298 /CMM (150-450); RDW COEFFICIENT OF VARIATION 15.8 (11.5-15.0); RED BLOOD CELL COUNT(AUTO) 3.58 MIL/uL (4.5-6.0); WHITE BLOOD COUNT (AUTO) 19.7 K/uL (4.3-11.0)
[2017-12-05 06:45] LABS: ALANINE AMINOTRANSFERASE 28 U/L (12-78); ALKALINE PHOSPHATASE 59 U/L (46-116); ASPARTATE AMINOTRANSFERASE 30 U/L (15-37); BILIRUBIN,TOTAL 0.8 mg/dL (0.2-1.0); CALCIUM, SERUM 8.5 mg/dL (8.5-10.1); CARBON DIOXIDE 26 mmol/L (21-32); CHLORIDE 98 mmol/L (98-107); CREATININE 0.9 mg/dL (0.6-1.3); GLUCOSE 104 mg/dL (74-106); MAGNESIUM 1.8 mg/dL (1.8-2.4); PHOSPHORUS 2.9 mg/dL (2.5-4.9); SODIUM SERUM 130 mmol/L (136-145); TOTAL PROTEIN, SERUM 5.8 g/dL (6.4-8.2); UREA NITROGEN, BLOOD 15 mg/dL (7-18)
[2017-12-05 06:53] LABS: TROPONIN I 0.139 ng/mL (0.00-0.056)
[2017-12-05 08:00] VITALS: BP 109/59
[2017-12-05] MEDS: FINASTERIDE (5 MG) 5 MG TABLET PO SCH (09:21)
[2017-12-05] MEDS: DOCUSATE SODIUM 100 MG CAPSULE PO SCH ×2 (09:21→18:05)
[2017-12-05] MEDS: ESCITALOPRAM OXALATE (10 MG) 10 MG TABLET PO SCH (09:21)
[2017-12-05] MEDS: MEMANTINE HCL 5 MG TABLET PO SCH ×2 (09:21→18:05)
[2017-12-05] MEDS: FLUOXETINE HCL 20 MG CAPSULE PO SCH (09:21)
[2017-12-05] MEDS: DONEPEZIL 5 MG TABLET PO SCH (09:21)
[2017-12-05] MEDS: FAMOTIDINE (20 MG) 20 MG TABLET PO SCH (09:21)
[2017-12-05] MEDS: DILTIAZEM HCL CD 240 MG PO SCH (09:23)
[2017-12-05] MEDS ORDERED: FUROSEMIDE 20 MG/2 ML VIAL IV ONE (09:30)
[2017-12-05] MEDS: VANCOMYCIN 1 GM in IV D5W 250 ML IV SCH (10:16)
[2017-12-05 12:00] VITALS: BP 93/49
[2017-12-05 16:00] VITALS: BP 93/49
[2017-12-05] MEDS: VANCOMYCIN 0.75 GM in IV D5W 250 ML IV SCH (18:05)
[2017-12-05 20:00] VITALS: BP 109/54
[2017-12-05] MEDS: FLUCONAZOLE (100 MG) 100 MG TABLET PO SCH (20:12)
[2017-12-05] MEDS: TAMSULOSIN 0.4 MG CAP.SR.24H PO SCH (21:41)
[2017-12-06] VITALS: BP 123/57
[2017-12-06] MEDS: VANCOMYCIN 0.75 GM in IV D5W 250 ML IV SCH ×3 (01:02→18:56)
[2017-12-06] MEDS: IPRATROPIUM NEB FS 0.5 MG/2.5 ML AMPUL.NEB NEB SCH ×4 (01:30→20:13)
[2017-12-06 04:00] VITALS: BP 107/59
[2017-12-06] MEDS: CEFEPIME 1 GM in IV D5W 50 ML IV SCH ×3 (05:21→21:38)
[2017-12-06 05:48] VITALS: BP 107/59
[2017-12-06 07:06] LABS: BASOPHILS % (AUTO) 0.2 % (0.0-2.0); EOSINOPHILS % (AUTO) 0.5 % (0.0-6.0); HEMATOCRIT 30 % (39-51); HEMOGLOBIN 9.8 g/dL (13.5-17.5); LYMPHOCYTES # (AUTO) 1.6 /CMM (0.8-4.8); LYMPHOCYTES % (AUTO) 9.8 % (20.0-44.0); MEAN CORPUSCULAR HEMOGLOBIN 28 PG (26.0-33.0); MEAN CORPUSCULAR HGB CONC 33 g/dl (31.0-36.0); MEAN CORPUSCULAR VOLUME 86 fL (80-96); MONOCYTES # (AUTO) 1.6 /CMM (0.1-1.30); MONOCYTES % (AUTO) 9.7 % (2.0-12.0); NEUTROPHILS # (AUTO) 12.8 /CMM (1.8-8.9); NEUTROPHILS % (AUTO) 79.8 % (43.0-81.0); PLATELET COUNT (AUTO) 284 /CMM (150-450); RDW COEFFICIENT OF VARIATION 15.5 (11.5-15.0); RED BLOOD CELL COUNT(AUTO) 3.48 MIL/uL (4.5-6.0)
[2017-12-06 07:25] LABS: ALANINE AMINOTRANSFERASE 28 U/L (12-78); ALBUMIN 1.8 g/dL (3.4-5.0); ALKALINE PHOSPHATASE 62 U/L (46-116); ASPARTATE AMINOTRANSFERASE 25 U/L (15-37); BILIRUBIN,TOTAL 0.6 mg/dL (0.2-1.0); CARBON DIOXIDE 28 mmol/L (21-32); CHLORIDE 94 mmol/L (98-107); CREATININE 0.8 mg/dL (0.6-1.3); GLUCOSE 149 mg/dL (74-106); MAGNESIUM 1.7 mg/dL (1.8-2.4); PHOSPHORUS 2.4 mg/dL (2.5-4.9); POTASSIUM 3.4 mmol/L (3.5-5.1); SODIUM SERUM 128 mmol/L (136-145); TOTAL PROTEIN, SERUM 5.6 g/dL (6.4-8.2); UREA NITROGEN, BLOOD 11 mg/dL (7-18)
--- NOTE | 2017-12-06 07:30 | NUR ---
Received patient from shift coordinator RN, Edmundo. Patient is alert, Irish speaking only. Patient lying in bed. On oxygen via NC, no sign of respiratory distress. Room is clear of clutter. Bed in low position, with wheels locked
[2017-12-06 08:00] VITALS: BP 109/62
[2017-12-06 08:06] LABS: CALCIUM, SERUM 8.9 mg/dL (8.5-10.1)
[2017-12-06] MEDS: FLUCONAZOLE (100 MG) 100 MG TABLET PO SCH (09:27)
[2017-12-06] MEDS: ESCITALOPRAM OXALATE (10 MG) 10 MG TABLET PO SCH (09:28)
[2017-12-06] MEDS: FINASTERIDE (5 MG) 5 MG TABLET PO SCH (09:28)
[2017-12-06] MEDS: FAMOTIDINE (20 MG) 20 MG TABLET PO SCH (09:31)
[2017-12-06] MEDS: FLUOXETINE HCL 20 MG CAPSULE PO SCH (09:31)
[2017-12-06] MEDS: MEMANTINE HCL 5 MG TABLET PO SCH ×2 (09:31→17:45)
[2017-12-06] MEDS: DOCUSATE SODIUM 100 MG CAPSULE PO SCH ×2 (09:31→17:45)
[2017-12-06] MEDS: DONEPEZIL 5 MG TABLET PO SCH (09:31)
[2017-12-06] MEDS: DILTIAZEM HCL CD 240 MG PO SCH (09:39)
[2017-12-06] MEDS ORDERED: IV NS 0.9% 250 ML BAG IV ONE (11:00)
[2017-12-06] MEDS: POTASSIUM CHLORIDE 20 MEQ TAB.PRT.SR PO SCH ×2 (11:10→12:51)
[2017-12-06] MEDS: Magnesium 1GM/D5W 100ML PREMIX 100 ML IV SCH ×2 (11:14→14:55)
[2017-12-06] MEDS ORDERED: K PHOS NEUTRAL 250 MG TABLET PO ONE (15:30)
[2017-12-06 16:00] VITALS: BP 117/60
--- NOTE | 2017-12-06 19:23 | NUR ---
End of Shift Note Patient had episode of nausea after RETOUCHER tried to give him mouth care. Patient is now in stable condition. Continues on oxygen via NC, no respiratory distress. Report given to retail shift leader RN, Edmundo
[2017-12-06 20:00] VITALS: BP 119/56
--- NOTE | 2017-12-06 20:00 | NUR ---
MS-1/FUEL BUYER PT NOTED WITH INFILTRATED LEFT AC #18 IV. IV SITE IS REDDENED AND WARM TO TOUCH. IV WAS DC'D WITH CATH TIP INTACT. PT ALSO NOTED WITH LEFT HAND #24 IV NOT FLUSHING AND PT COMPLAINT OF PAIN. IV WAS DC'D WITH CATH TIP INTACT. WILL PLACE NEW LINE. WILL CONTINUE TO MONITOR.
--- NOTE | 2017-12-06 21:08 | NUR ---
MS-1/PHILOMENA LEE NOTIFIED ABOUT IV INFILTRATION. WAS TOLD TO MONITOR THE SITE. WILL CONTINUE TO MONITOR.
[2017-12-06] MEDS: TAMSULOSIN 0.4 MG CAP.SR.24H PO SCH (21:28)
[2017-12-06] MEDS: HYDROCODONE/APAP 10/325MG 1 EA TABLET PO PRN (21:28)
[2017-12-06] MEDS ORDERED: ZOLPIDEM TARTRATE 5 MG TABLET PO ONE (22:00)
[2017-12-07] VITALS (15 sets, daily range): BP systolic 96–161; BP diastolic 52–85
[2017-12-07] MEDS: IPRATROPIUM NEB FS 0.5 MG/2.5 ML AMPUL.NEB NEB SCH ×4 (01:57→19:52)
[2017-12-07] MEDS: VANCOMYCIN 0.75 GM in IV D5W 250 ML IV SCH ×3 (02:24→21:33)
[2017-12-07] MEDS: CEFEPIME 1 GM in IV D5W 50 ML IV SCH ×3 (05:14→20:15)
--- NOTE | 2017-12-07 07:45 | NUR ---
Received pt in bed awake, alert, oriented x1, verbally responsive, Bahamian speaker,o2 sat 93% o2 at 3 L NC, reposition for comfort, acll light in reach.
[2017-12-07 08:31] LABS: CALCIUM, SERUM 8.6 mg/dL (8.5-10.1); CARBON DIOXIDE 24 mmol/L (21-32); CHLORIDE 94 mmol/L (98-107); CREATININE 0.7 mg/dL (0.6-1.3); GLUCOSE 121 mg/dL (74-106); PHOSPHORUS 2.8 mg/dL (2.5-4.9); POTASSIUM 3.8 mmol/L (3.5-5.1); SODIUM SERUM 129 mmol/L (136-145); UREA NITROGEN, BLOOD 10 mg/dL (7-18)
[2017-12-07] MEDS: ESCITALOPRAM OXALATE (10 MG) 10 MG TABLET PO SCH (09:33)
[2017-12-07] MEDS: FLUOXETINE HCL 20 MG CAPSULE PO SCH (09:33)
[2017-12-07] MEDS: FAMOTIDINE (20 MG) 20 MG TABLET PO SCH (09:33)
[2017-12-07] MEDS: MEMANTINE HCL 5 MG TABLET PO SCH ×2 (09:34→17:29)
[2017-12-07] MEDS: FLUCONAZOLE (100 MG) 100 MG TABLET PO SCH (09:34)
[2017-12-07] MEDS: FINASTERIDE (5 MG) 5 MG TABLET PO SCH (09:34)
[2017-12-07] MEDS: DILTIAZEM HCL CD 240 MG PO SCH (09:34)
[2017-12-07] MEDS: DOCUSATE SODIUM 100 MG CAPSULE PO SCH ×2 (09:34→17:29)
[2017-12-07] MEDS: DONEPEZIL 5 MG TABLET PO SCH (09:35)
--- NOTE | 2017-12-07 10:00 | NUR ---
ABNORMAL LABS MG 1.7 AND k+ 3.[address] PADILLA VIA TEXT, BY CN NO NEW ORDERS.
--- NOTE | 2017-12-07 10:45 | NUR ---
Pt o2 sat 88 3 L NC RR 36, pt was repositioned, HOB elevated and was reassure[facility]
[2017-12-07 11:49] LABS: BASOPHILS # (AUTO) 0.3 /CMM (0.0-0.2); BASOPHILS % (AUTO) 1.6 % (0.0-2.0); EOSINOPHILS % (AUTO) 0.1 % (0.0-6.0); HEMATOCRIT 32 % (39-51); HEMOGLOBIN 10.5 g/dL (13.5-17.5); LYMPHOCYTES % (AUTO) 4.9 % (20.0-44.0); MEAN CORPUSCULAR HEMOGLOBIN 28 PG (26.0-33.0); MEAN CORPUSCULAR HGB CONC 33 g/dl (31.0-36.0); MEAN CORPUSCULAR VOLUME 86 fL (80-96); MONOCYTES # (AUTO) 1.8 /CMM (0.1-1.30); MONOCYTES % (AUTO) 9.1 % (2.0-12.0); NEUTROPHILS % (AUTO) 84.3 % (43.0-81.0); PLATELET COUNT (AUTO) 337 /CMM (150-450); RDW COEFFICIENT OF VARIATION 15.8 (11.5-15.0); RED BLOOD CELL COUNT(AUTO) 3.73 MIL/uL (4.5-6.0); WHITE BLOOD COUNT (AUTO) 20.1 K/uL (4.3-11.0)
[2017-12-07 12:00] LABS: CALCIUM, SERUM 8.6 mg/dL (8.5-10.1); CARBON DIOXIDE 25 mmol/L (21-32); CHLORIDE 93 mmol/L (98-107); CREATININE 0.8 mg/dL (0.6-1.3); GLUCOSE 153 mg/dL (74-106); POTASSIUM 3.7 mmol/L (3.5-5.1); SODIUM SERUM 127 mmol/L (136-145); UREA NITROGEN, BLOOD 11 mg/dL (7-18)
--- NOTE | 2017-12-07 12:33 | NUR ---
Pt in bed repositioned for comfort, o2 sat 93%, o2 3 L NC, no distress, call light in reach.
--- NOTE | 2017-12-07 13:24 | NUR ---
Dr Tello was called d/t pt's HR 135 and is A fib was seen by shelia REBOLLAR new orders noted, o2 nsat 90 3 L NC. no distress, pt is calm now, RD at this time.
[2017-12-07 14:36] LABS: ABG BASE EXCESS 2.2 mmol/L; ABG OXYGEN SATURATION 88.4 % (92.0-98.5); ABG PCO2 28.3 mmHg (35.0-45.0); ABG PH 7.546 (7.350-7.450); ABG PO2 51.1 mmHg (75.0-100.0); MetHb 0.5 % (0.0-1.5); O2Hb 87.1 % (94.0-97.0); SITE, ABG Right Brachial; VENT MODE, BG NASAL CANNULA
--- NOTE | 2017-12-07 14:55 | NUR ---
BANKS CALL BACK WAS INFORMED TO HIM ABOUT PT'S CONDITION AND THAT PAPER MAKING MACHINE OPERATOR SAW PT AND THAT BLOOD GAS WAS ORDERED NOW O2 IS 98% HI FLOW MASK, HR 88, NO NEW ORDERS.
--- NOTE | 2017-12-07 16:21 | NUR ---
increased fio2 to 15 lpm o2 flow via NRM due to low spo2 86 - 88% hr 133 - 138 Addendum: 12/07/17 at 1621 by BRANDON SCANLON RT Amended: Links added.
--- NOTE | 2017-12-07 16:40 | NUR ---
DR LEIVA WAS CALLED AGAIN D/T rt IN ROOM WITH PT AND HE SAID PT NEED TO GO ON BYPAP AND TRANSFER TO ICU SINCE PT IS IS RESPIRATORY DISTRESS, AWAITING FOR MD TO CALL BACK.
--- NOTE | 2017-12-07 17:15 | NUR ---
Dr Wilks called and spoke with RT report was given also, I gave also report about pt's condition, HR 132, RR 42, o2 sat 97 with hiflow 15 l, ordered for pt to be send to icu, also made him aware that Dr Martinez was notify earlier and he does not want to be call, he requested for us to call pulmo and cardio for further orders, so Dr Wilks ordered to transfer pt to icu, CN made aware.
[2017-12-07] MEDS: DIGOXIN 0.25 MG TABLET PO SCH ×2 (17:29→23:35)
--- NOTE | 2017-12-07 17:30 | NUR ---
PT IN BED AWAKE, ALERT, ORIENTED X2-3 IN RESPIRATORY DISTRESS, RR 38, HR 132, ON HI-FLOW MASK AT 15 L O2 SAT 98, PT HAS ORDERS TO BE TRANSFER TO ICU TO ROOM 253, REPORT WILL BE GIVEN AT BEDSIDE.
--- NOTE | 2017-12-07 18:05 | NUR ---
PT HAS ORDERS TO BE TRANSFER TO ICU, BY DR KWOK, NOW PT IS BEING TRANSFER VIA BED, RR 46, HR 132, O2 SAT 98 WITH HI-FLOW MASK AT 15 L, PT IS USING ABDOMINAL AND AXILLARY MUSCLE TO BREATH, ALSO DIGOXING 0.25 PO WAS GIVEN PRIOR.
--- NOTE | 2017-12-07 18:40 | NUR ---
HYDROELECTRIC MACHINERY MECHANIC RECEIVED THE PATIENT FROM [facility]. PATIENT IS ON NRB 100% MASK. ALERT AND AWAKE. HYPERTENSIVE AND IN RAPID AFIB. AFEBRILE. SEEN BY INPATIENT CODER AT BEDSIDE. STAT CXR ORDERED. WILL MONITOR.
[2017-12-07] MEDS: HYDROCODONE/APAP 10/325MG 1 EA TABLET PO PRN (19:47)
--- NOTE | 2017-12-07 20:00 | NUR ---
AIRPLANE FIRST OFFICER - NOTES - PT RECEIVED IN BED ON 15 L NONREBREATHER, TOLERATING WELL, PT IS AWAKE ALERT ORIENTED X4 PERSIAN/KAZAKH SPEAKING. 02SAT > 94%. PT IS IN AFIB HR 120S, BP WNL. PT HAS LEFT FOREARM 20G IV. WILL CONTINUE TO MONITOR
[2017-12-07 20:52] LABS: ABG BASE EXCESS -0.2 mmol/L; ABG OXYGEN SATURATION 96.5 % (92.0-98.5); ABG PCO2 30.2 mmHg (35.0-45.0); ABG PH 7.489 (7.350-7.450); ABG PO2 92.4 mmHg (75.0-100.0); AaDO2 446.3 mmHg; COHb 0.3 % (0.5-1.5); MetHb 0.7 % (0.0-1.5); O2Hb 95.5 % (94.0-97.0); SITE, ABG Right Radial; VENT MODE, BG 15L NRB
[2017-12-07] MEDS: TAMSULOSIN 0.4 MG CAP.SR.24H PO SCH (21:33)
[2017-12-08] VITALS (32 sets, daily range): BP systolic 100–148; BP diastolic 54–80
[2017-12-08] MEDS: IPRATROPIUM NEB FS 0.5 MG/2.5 ML AMPUL.NEB NEB SCH ×4 (01:30→19:26)
[2017-12-08] MEDS ORDERED: MORPHINE SULFATE INJ 2 MG/ML DISP.SYRIN ONE ×2 (02:46→05:55)
[2017-12-08] MEDS ORDERED: MORPHINE SULFATE INJ 2 MG/ML DISP.SYRIN IV ONE ×2 (03:00→06:00)
--- NOTE | 2017-12-08 04:00 | NUR ---
PT IS REFUSING BED BATH
[2017-12-08] MEDS: CEFEPIME 1 GM in IV D5W 50 ML IV SCH ×3 (05:16→21:48)
[2017-12-08] MEDS: DIGOXIN 0.25 MG TABLET PO SCH (05:16)
[2017-12-08 05:28] LABS: ABG BASE EXCESS 1.8 mmol/L; ABG OXYGEN SATURATION 90.9 % (92.0-98.5); ABG PCO2 35.4 mmHg (35.0-45.0); ABG PH 7.471 (7.350-7.450); ABG PO2 60.4 mmHg (75.0-100.0); AaDO2 472.8 mmHg; COHb 0.3 % (0.5-1.5); MetHb 0.8 % (0.0-1.5); O2Hb 89.9 % (94.0-97.0); SITE, ABG Right Radial; VENT MODE, BG 15L NRB
--- NOTE | 2017-12-08 05:47 | NUR ---
PT IS HAVING BLOODY SPUTUM, WILL NOTIFY EYELET OPERATOR POT FISHER
[2017-12-08 05:48] LABS: CALCIUM, SERUM 8.8 mg/dL (8.5-10.1); CARBON DIOXIDE 26 mmol/L (21-32); CHLORIDE 94 mmol/L (98-107); CREATININE 0.7 mg/dL (0.6-1.3); GLUCOSE 124 mg/dL (74-106); MAGNESIUM 1.7 mg/dL (1.8-2.4); PHOSPHORUS 3.2 mg/dL (2.5-4.9); POTASSIUM 3.9 mmol/L (3.5-5.1); SODIUM SERUM 129 mmol/L (136-145); UREA NITROGEN, BLOOD 10 mg/dL (7-18)
--- NOTE | 2017-12-08 05:52 | NUR ---
ORACLE IAM CONSULTANT PATRICIA FLORES NOTIFIED OF PT CHEST PAIN, INCREASED HEART RATE, ABG RESULTS AND BLOODY SPUTUM. NEW ORDER FOR MORPHINE 1 MG IV ONCE, NO BIPAP. WILL CARRY OUT ORDERS
--- NOTE | 2017-12-08 07:30 | NUR ---
INITIAL NOTES: PT RECEIVED IN BED ON 15 L NONREBREATHER, TOLERATING WELL, PT IS AWAKE ALERT ORIENTED X4 KHMER/SOLOMON ISLANDER SPEAKING. 02SAT > 96%. PT IS IN AFIB HR 120S, BP WNL. PT HAS LEFT FOREARM 20G IV. PT C/O BLOODY SPUTUM LAST NIGHT BUT NONE THIS AM . BED IN LOW POSITION LOCKED AND CALL GARCIA NEXT TO PT. WILL CONTINUE TO MONITOR
[2017-12-08] MEDS: FUROSEMIDE 40 MG/4 ML VIAL IV SCH ×3 (08:46→16:41)
[2017-12-08] MEDS: FINASTERIDE (5 MG) 5 MG TABLET PO SCH (08:46)
[2017-12-08] MEDS: Magnesium 1GM/D5W 100ML PREMIX 100 ML IV SCH ×2 (08:46→09:48)
[2017-12-08] MEDS: DOCUSATE SODIUM 100 MG CAPSULE PO SCH ×2 (08:46→16:41)
[2017-12-08] MEDS: DILTIAZEM HCL CD 240 MG PO SCH (08:47)
[2017-12-08] MEDS: ESCITALOPRAM OXALATE (10 MG) 10 MG TABLET PO SCH (08:47)
[2017-12-08] MEDS: FAMOTIDINE (20 MG) 20 MG TABLET PO SCH (08:47)
[2017-12-08] MEDS: FLUCONAZOLE (100 MG) 100 MG TABLET PO SCH (08:47)
[2017-12-08] MEDS: MEMANTINE HCL 5 MG TABLET PO SCH ×2 (08:47→16:41)
[2017-12-08] MEDS: DONEPEZIL 5 MG TABLET PO SCH (08:48)
[2017-12-08] MEDS: FLUOXETINE HCL 20 MG CAPSULE PO SCH (08:49)
[2017-12-08] MEDS: VANCOMYCIN 0.75 GM in IV D5W 250 ML IV SCH ×2 (10:28→22:24)
--- NOTE | 2017-12-08 12:00 | NUR ---
PATIENT BLE DUPLEX SHOWED DVT TO BLE. DR. MCADAMS MADE NOTIFIED AND ORDER TO START PATIENT ON LOVENOX 1MG/KG Q12 . ORDER PLACED FOR PHARMACY TO DOSE.
[2017-12-08] MEDS: DIGOXIN INJ 0.5 MG/2 ML AMPUL IV SCH ×2 (12:19→18:00)
--- NOTE | 2017-12-08 13:45 | NUR ---
DR. LEIVA SPOKE TO PATIENT DAUGHTER AT [facility] VIA PHONE REGARDING CONDITION AND DISCUSSED PLAN OF CARE. FAMILY HAD OPTED OUT RE: AGGRESIVE TREATMENT. REQUESTED FOR DNR/DNI CODE STATUS. MD ORDER PLACED.
[2017-12-08] MEDS: ENOXAPARIN SODIUM 60 MG/0.6 ML DISP.SYRIN SQ SCH ×2 (13:53→21:51)
--- NOTE | 2017-12-08 19:40 | NUR ---
RN NOTES RECEIVED PT AWAKE ON BED WITH NON REBREATHER MASK @ 15 LPM SATURATION 98% NO ACUTE RESP DISTRESS. PT IS AOX 3 [place] SPEAKING. AFEBRILE. VSS. SR WITH FIRST DEGREE AVB HR 103. COMPLAINING OF NECK PAIN/ SORE THROAT PRN MEDICINE WILL GIVEN ORDERED. IV SITE ON LEFT HAND G 20 AND LFA G 20 INTACT AND PATENT. ENCOURAGED TO EAT HIS DINNER TRY PT STILL REFUSED.. KEPT PT CLEAN AND DRY. WILL MONITOR CLOSELY.
--- NOTE | 2017-12-08 20:08 | NUR ---
PT IS AWAKE ON NRB O2 SAT 100%. NO SOB. B/S CLR DM BILAT. WILL CONTINUE TO MONITOR.
[2017-12-08] MEDS: HYDROCODONE/APAP 10/325MG 1 EA TABLET PO PRN (20:20)
[2017-12-08] MEDS: TAMSULOSIN 0.4 MG CAP.SR.24H PO SCH (21:48)
--- NOTE | 2017-12-08 22:00 | NUR ---
RN NOTES HIPOLITO FLORES ON THE FLOOR INFORMED ABOUT THE PT COMPLAINED OF SORE THROAT WITH ORDER TO GIVE LOZENGES PT TOLERATED
[2017-12-08] MEDS ORDERED: MENTHOL/CETYLPYRD (CEPACOL) 1 LOZ LOZENGE PO PRN (22:30)
[2017-12-09] VITALS (25 sets, daily range): BP systolic 95–144; BP diastolic 46–73
--- NOTE | 2017-12-09 00:15 | NUR ---
RN NOTES PT IS AWAKE NO ACUTE RESP DISTRESS, OFFERED TO CHANGE DIAPER BUT PT REFUSED , WILL OFFER IT AGAIN LATER.
[2017-12-09] MEDS: IPRATROPIUM NEB FS 0.5 MG/2.5 ML AMPUL.NEB NEB SCH ×4 (01:12→19:28)
[2017-12-09 04:48] LABS: EOSINOPHILS % (AUTO) 0.2 % (0.0-6.0); HEMATOCRIT 32 % (39-51); HEMOGLOBIN 10.4 g/dL (13.5-17.5); LYMPHOCYTES % (AUTO) 4.7 % (20.0-44.0); MEAN CORPUSCULAR HEMOGLOBIN 28 PG (26.0-33.0); MEAN CORPUSCULAR HGB CONC 33 g/dl (31.0-36.0); MEAN CORPUSCULAR VOLUME 86 fL (80-96); MONOCYTES # (AUTO) 1.6 /CMM (0.1-1.30); MONOCYTES % (AUTO) 7.7 % (2.0-12.0); NEUTROPHILS # (AUTO) 18.5 /CMM (1.8-8.9); NEUTROPHILS % (AUTO) 87.4 % (43.0-81.0); PLATELET COUNT (AUTO) 305 /CMM (150-450); RDW COEFFICIENT OF VARIATION 15.4 (11.5-15.0); WHITE BLOOD COUNT (AUTO) 21.1 K/uL (4.3-11.0)
[2017-12-09] MEDS: CEFEPIME 1 GM in IV D5W 50 ML IV SCH ×3 (04:49→20:51)
[2017-12-09 05:04] LABS: ALANINE AMINOTRANSFERASE 28 U/L (12-78); ALBUMIN 1.8 g/dL (3.4-5.0); ALKALINE PHOSPHATASE 83 U/L (46-116); ASPARTATE AMINOTRANSFERASE 23 U/L (15-37); BILIRUBIN,TOTAL 0.9 mg/dL (0.2-1.0); CARBON DIOXIDE 30 mmol/L (21-32); CHLORIDE 89 mmol/L (98-107); CREATININE 0.8 mg/dL (0.6-1.3); GLUCOSE 104 mg/dL (74-106); MAGNESIUM 1.8 mg/dL (1.8-2.4); PHOSPHORUS 3.7 mg/dL (2.5-4.9); POTASSIUM 3.3 mmol/L (3.5-5.1); SODIUM SERUM 128 mmol/L (136-145); UREA NITROGEN, BLOOD 16 mg/dL (7-18)
--- NOTE | 2017-12-09 07:08 | NUR ---
RN NOTES PT ASLEEP WELL AT NIGHT, PT ALLOWED TO HAVE BED BATH,BED BATH DONE AND TOLERATED WELL DENIES SEVERE PAIN. HEMOPTYSIS STILL NOTED. NO ACUTE RESP DISTRESS CONTINUE ON NON REBREATHER MASK AT 15 LPM. ALL DUE MEDICINE TOLERATED WELL. ALL NEEDS ATTENDED. ENDORSED CONTINUITY OF CARE TO AM NURSE.
--- NOTE | 2017-12-09 07:30 | NUR ---
INITIAL NOTES: PT RECEIVED IN BED ON 15 L NONREBREATHER, TOLERATING WELL, PT IS AWAKE ALERT ORIENTED X4 NEPALI/GREEK SPEAKING. 02SAT > 96%. PT IS IN SR HR 90'S, BP WNL. PT HAS LEFT FOREARM 20G IV. PT C/O BLOODY SPUTUM LAST NIGHT BUT NONE THIS AM . BED IN LOW POSITION LOCKED AND CALL GARCIA NEXT TO PT. WILL CONTINUE TO MONITOR
[2017-12-09] MEDS ORDERED: PHENOL/SODIUM PHENOLATE 1 BOTTLE MM PRN (08:00)
--- NOTE | 2017-12-09 09:22 | NUR ---
MD MCAADMS WANTED TO TO TRY SIMPLE MASK CHANGED TO SIMPLE MASK FROM NON REBREATHER MASK. PT HR INCREASED SATURATION DECREASED TO 86% AND PT C/O NOT BEING ABLE TO BREATH. ALSO PT BECAME ANXIOUS.
[2017-12-09] MEDS: DOCUSATE SODIUM 100 MG CAPSULE PO SCH ×2 (09:42→16:57)
[2017-12-09] MEDS: MEMANTINE HCL 5 MG TABLET PO SCH ×2 (09:42→16:57)
[2017-12-09] MEDS: FLUCONAZOLE (100 MG) 100 MG TABLET PO SCH (09:42)
[2017-12-09] MEDS: DONEPEZIL 5 MG TABLET PO SCH (09:42)
[2017-12-09] MEDS: ESCITALOPRAM OXALATE (10 MG) 10 MG TABLET PO SCH (09:42)
[2017-12-09] MEDS: FINASTERIDE (5 MG) 5 MG TABLET PO SCH (09:42)
[2017-12-09] MEDS: FAMOTIDINE (20 MG) 20 MG TABLET PO SCH (09:42)
[2017-12-09] MEDS: FLUOXETINE HCL 20 MG CAPSULE PO SCH (09:42)
[2017-12-09] MEDS: DILTIAZEM HCL CD 240 MG PO SCH (09:43)
[2017-12-09] MEDS: ENOXAPARIN SODIUM 60 MG/0.6 ML DISP.SYRIN SQ SCH ×2 (09:45→20:52)
--- NOTE | 2017-12-09 10:09 | NUR ---
SPOKE WITH NADINE (DAUGHTER0 at who states she will come to visit pt today.
[2017-12-09] MEDS: VANCOMYCIN 0.75 GM in IV D5W 250 ML IV SCH ×2 (11:08→22:35)
[2017-12-09] MEDS ORDERED: POTASSIUM CHLORIDE 20 MEQ POWDER PACKET PO SCH (12:00)
[2017-12-09] MEDS ORDERED: POTASSIUM CHLORIDE 20 MEQ POWDER PACKET GT ONE (14:30)
--- NOTE | 2017-12-09 16:27 | NUR ---
patient is now DNR/DNI per family request.Per patient daughter Mindy [phone], Family decided [facility] hosp[facility] care. [facility] [phone] referral per MD request.Hospice nurse will contact family to set up meeting Addendum: 12/09/17 at 1629 by ARLYN MENESES RN Amended: Links added.
--- NOTE | 2017-12-09 19:20 | NUR ---
RN NOTES PT AWAKE ON BED WITH NON REBREATHER MASK @ 15 LPM SATURATION 95% NO ACUTE RESP DISTRESS. PT IS AOX 2-3 CITIZEN OF [place] SPEAKING. AFEBRILE. SR WITH FIRST DEGREE AVB HR 90'S. IV SITE ON LFA G 20 WITH TKO INTACT AND PATENT. COMPLAINING OF SORE THROAT WILL GIVE PRN ORDER. ENCOURAGED TO EAT HIS DINNER, INEFFECTIVE. KEPT PT CLEAN AND DRY. DIAPER DRY AT THIS TIME, WILL MONITOR CLOSELY.
[2017-12-09] MEDS: HYDROCODONE/APAP 10/325MG 1 EA TABLET PO PRN (21:04)
[2017-12-09] MEDS: TAMSULOSIN 0.4 MG CAP.SR.24H PO SCH (21:05)
[2017-12-10] VITALS (19 sets, daily range): BP systolic 109–138; BP diastolic 50–76
[2017-12-10] MEDS: IPRATROPIUM NEB FS 0.5 MG/2.5 ML AMPUL.NEB NEB SCH ×3 (00:54→13:30)
[2017-12-10 05:19] LABS: CALCIUM, SERUM 8.9 mg/dL (8.5-10.1); CARBON DIOXIDE 31 mmol/L (21-32); CHLORIDE 91 mmol/L (98-107); CREATININE 0.8 mg/dL (0.6-1.3); GLUCOSE 106 mg/dL (74-106); MAGNESIUM 1.8 mg/dL (1.8-2.4); POTASSIUM 3.3 mmol/L (3.5-5.1); SODIUM SERUM 128 mmol/L (136-145); UREA NITROGEN, BLOOD 19 mg/dL (7-18)
[2017-12-10] MEDS: CEFEPIME 1 GM in IV D5W 50 ML IV SCH ×2 (05:35→13:00)
--- NOTE | 2017-12-10 07:00 | NUR ---
RN NOTES PT ASLEEP WELL, ALLOWED TO GIVE BED BATH AND TOLERATED WELL, AFEBRILE THROUGHOUT THE SHIFT. SATURATION REMAINED >94% ON NON REBREATHER MASK @ 15 LPM. NO SIGNIFICANT CHANGE OF CONDITION DENIES PAIN AT THIS TIME. KEPT CLEAN AND DRY. ENDORSED CONTINUITY OF CARE TO AM NURSE.
--- NOTE | 2017-12-10 07:12 | NUR ---
RN INITIAL NOTES: Rec'd pt awake on bed, A/O x 2-3,. On non rebreather mask/ 15lpm, sating at 94%. On telemonitor, SR w/ 1' AVB w/ PVCs 94bpm. Has LFA G20, SL, patent & intact w/ no s/sx of infection/infiltration, TKO. Provided comfort & safety measures. Bed kept low & in locked pos. Call light placed w/in reach. Will cont to monitor & attend pt needs.
--- NOTE | 2017-12-10 08:00 | NUR ---
RT PATIENT REQUIRING HIGH FLOW OXYGEN, UNABLE TO REMOVE NRB MASK TO GIVE RESP HHN TX. NO DISTRESS AT THIS TIME. DIM B/S
--- NOTE | 2017-12-10 09:00 | NUR ---
Pt noted in respiratory distress when moving (assisting in changing diaper). Offered breakfast but pt refused. Pt also refused taking some of his medications. Pt noted change of ECG reading from SR to uncontrolled A.fib w/ HR at 102bpm. Ok MCMILLAN already ordered pt to be on Comfort Measures Only. Pt seen & examined by TRESTLE MECHANIC.
[2017-12-10] MEDS: ESCITALOPRAM OXALATE (10 MG) 10 MG TABLET PO SCH (09:01)
[2017-12-10] MEDS: DOCUSATE SODIUM 100 MG CAPSULE PO SCH ×2 (09:01→16:43)
[2017-12-10] MEDS: DONEPEZIL 5 MG TABLET PO SCH (09:01)
[2017-12-10] MEDS: MEMANTINE HCL 5 MG TABLET PO SCH ×2 (09:01→16:43)
[2017-12-10] MEDS: FAMOTIDINE (20 MG) 20 MG TABLET PO SCH (09:01)
[2017-12-10] MEDS: FLUOXETINE HCL 20 MG CAPSULE PO SCH (09:01)
[2017-12-10] MEDS: FINASTERIDE (5 MG) 5 MG TABLET PO SCH (09:01)
[2017-12-10] MEDS: DILTIAZEM HCL CD 240 MG PO SCH (09:01)
[2017-12-10] MEDS: FLUCONAZOLE (100 MG) 100 MG TABLET PO SCH (09:01)
[2017-12-10] MEDS: ENOXAPARIN SODIUM 60 MG/0.6 ML DISP.SYRIN SQ SCH (09:02)
[2017-12-10] MEDS: VANCOMYCIN 0.75 GM in IV D5W 250 ML IV SCH (10:00)
--- NOTE | 2017-12-10 10:00 | NUR ---
Dr. Keith made aware that pt converted to Afib and that pt is comfort measures only as ordered. NNO at this time.
[2017-12-10] MEDS ORDERED: PHEN180S18 MM (10:20)
[2017-12-10] MEDS: RIVAROXABAN 15 MG TABLET PO SCH ×2 (11:00→16:44)
--- NOTE | 2017-12-10 12:00 | NUR ---
Robinson Brown) re: ordered comfort care. Per , [facility] will talk to the family and sign the consent. Addendum: 12/10/17 at 1526 by VIJAY CAMARENA RN Clemencia (daughter) was able to talk to Ariana ([facility]), consent was signed by the daughter. Ariana was able to talked to Dr. Johnson over the phone re: Hospice orders.
--- NOTE | 2017-12-10 13:38 | NUR ---
RT PATIENT REQUIRING HIGH FLOW OXYGEN, UNABLE TO REMOVE NRB MASK TO GIVE RESP HHN TX. NO DISTRESS AT THIS TIME. DIM B/S
--- NOTE | 2017-12-10 17:25 | NUR ---
Notified admitting re: DC order from ICU then admit to [facility] level of care, c/o Richard. Faxed Hospice orders to pharmacy.
--- NOTE | 2017-12-10 18:51 | NUR ---
VISITING HOUSEKEEPER NOTES: Pt DC'd to Hospice Care as ordered. Pt remains A/O x 2, still tacypneic/ SOB while on non rebreather mask 15lpm. IV line access removed, pressure dressing applied, no infection noted. Dtr natalie informed about new room & DC orders. No concern identified at this time. Pt for transfer out of ICU to rm 203. Will endorse to PM RN.
== END 2017-12-10 18:55 | disposition hospice, inpatient (51) | DRG 871 ==
LOC: ER 20:00 → TELE1 22:16 → MEDSG1 12-05 16:47 → ICU 12-07 18:01
PROVIDERS: ADMIT Nurse Practitioner Acute Care; ATTEND Nurse Practitioner Acute Care
DX: A41.9 Sepsis, unspecified organism (principal); N17.0 Acute kidney failure with tubular necrosis; I21.A1 Myocardial infarction type 2; J15.6 Pneumonia due to other Gram-negative bacteria; J96.01 Acute respiratory failure with hypoxia; E44.0 Moderate protein-calorie malnutrition; J44.0 Chronic obstructive pulmonary disease with (acute) lower respiratory infection; C34.90 Malignant neoplasm of unspecified part of unspecified bronchus or lung; E87.2 Acidosis; C34.31 Malignant neoplasm of lower lobe, right bronchus or lung; C78.7 Secondary malignant neoplasm of liver and intrahepatic bile duct; I48.92 Unspecified atrial flutter; B37.49 Other urogenital candidiasis; E22.2 Syndrome of inappropriate secretion of antidiuretic hormone; I82.413 Acute embolism and thrombosis of femoral vein, bilateral; I82.432 Acute embolism and thrombosis of left popliteal vein; R65.20 Severe sepsis without septic shock; I48.91 Unspecified atrial fibrillation; I25.10 Atherosclerotic heart disease of native coronary artery without angina pectoris; Z95.1 Presence of aortocoronary bypass graft; Z51.5 Encounter for palliative care; Z66 Do not resuscitate; Z87.891 Personal history of nicotine dependence; D72.829 Elevated white blood cell count, unspecified; E86.1 Hypovolemia; D63.8 Anemia in other chronic diseases classified elsewhere; E83.52 Hypercalcemia; K59.00 Constipation, unspecified; E11.9 Type 2 diabetes mellitus without complications; I10 Essential (primary) hypertension; R59.0 Localized enlarged lymph nodes; E78.5 Hyperlipidemia, unspecified; E86.0 Dehydration; F32.9 Major depressive disorder, single episode, unspecified; E87.6 Hypokalemia; F03.90 Unspecified dementia, unspecified severity, without behavioral disturbance, psychotic disturbance, mood disturbance, and anxiety
CPT/HCPCS: 36415; 36600; 71045-TC; 74018; 80048-TC; 80053-TC; 80061-TC; 80076-TC; 80202-TC; 81000-TC; 82803-TC; 83605-TC; 83735-TC; 84100-TC; 84443-TC; 84484-TC; 85025-TC; 85730-TC; 87040-TC; 87070-TC; 87081-TC; 87086-TC; 93307-TC; 93970-TC; 94760-TC; 94799-TC; A4606; J0692; J1160; J1650; J1940; J2270; J3370; J3475; J3490; J7030; J7040; J7050; J7060; Z7610

== ENCOUNTER 2017-12-10 18:08 | Inpatient (IN) | payer OTHER ==
[~2017-12-10] VITALS: Ht 162.6 cm; Wt 63.5 kg
[~2017-12-10 18:08] MED LIST changes: +PHEN180S18 MM
[2017-12-10 18:30] VITALS: BP 123/59
[2017-12-10] MEDS ORDERED: ACETAMINOPHEN 650 MG/SUPP.RECT RC PRN (18:30)
[2017-12-10] MEDS ORDERED: BISACODYL SUPP (10 MG) 10 MG/SUPP.RECT SUPP.RECT RC PRN (18:30)
[2017-12-10] MEDS ORDERED: ONDANSETRON 4 MG TAB.RAPDIS SL PRN (18:30)
--- NOTE | 2017-12-10 18:42 | NUR ---
RN ADMITTING NOTES: Pt admitted under [facility], orders carried out. Pt is A/O x 2, able to communicate. On non rebreather mask at 15lpm, sating at 93%, tachypneic/SOB w/ RR 24bpm. Pt has sacral redness but refused photos to be taken d/t SOB. Dtr Clemencia called & informed about the room 203. Provided comfort & safety measures. Bed kept low & in locked pos. Call light placed w/in reach. Pt to be transferred out of ICU to 203. Will endorse to PM RN for CARLY.
--- NOTE | 2017-12-10 19:00 | NUR ---
RN NOTE RECEIVED PT IN NO ACUTE DISTRESS IN BED. PT IS A/O X 2 AND ABLE TO MAKE NEEDS KNOWN. PT IS ON O2 VIA NON REBREATHER MASK @ 15LPM AND TOLERATING WELL WITH O2 SAT @ 98%. PT IS CURRENTLY ON COMFORT MEASURES HOSPICE. PT NOT C/O ANY SOB, DIFFICULTY BREATHING OR PAIN AT THIS TIME. PT HAS LFA 20G THAT IS CLEAN DRY INTACT AND PATENT WITH SALINE FLUSH. IV IS SALINE LOCKED. BED IN LOW LOCK POSITION WITH RIALS UP X 2. CALL LIGHT WITHIN REACH AND ALL SAFETY MEASURES ENSURED AND CARRIED OUT. PT TO BE TRANSFERRED TO MED SURG 2 FOR CONTINUITY OF CARE.
--- NOTE | 2017-12-10 19:15 | NUR ---
RN NOTE SPOKE WITH HOSPICE NURSE BECAUSE WE DO NOT CARRY ATIVAN SUBLINGUAL. RECEIVED ORDERS TO NOT D/C IV AND HOSPICE NURSE WILL COME IN, IN THE AM TO SEE PT. BUT IF NEED BE I WILL CALL FOR ORDERS OF ATIVAN IV FOR ANXIETY AND COMFORT. LFA 20G IV NOT D/C ORDERED.
--- NOTE | 2017-12-10 19:45 | NUR ---
MS RN NOTES RECEIVED TRANSFER FROM ICU,REPORT GIVEN BY NICK DUPREE.PATIENT ON HOSPICE STATUS,COMFORT MEASURES ONLY.WITH SALINE LOCK LFA #20 INTACT AND PATENT.NO ISOLATION.SKIN REDNESS ON SACRAL AREA,WILL APPLY SKIN BARRIER.REPOSITION PER PROTOCOL.CALL LIGHT IN REACH.WILL CONTINUE TO MONITOR STATUS.
--- NOTE | 2017-12-10 19:45 | NUR ---
RN NOTE ENDORSED REPORT TO [place] RN IN MED SURG 2 FOR CONTINUITY OF CARE.
--- NOTE | 2017-12-10 19:55 | NUR ---
RN NOTE PT TRANSFERRED TO MED SURG 2 IN STABLE CONDITION WITH SENIOR ELECTRICAL ENGINEER. PT TRANSFERRED OVER TO [place] RN FOR CONTINUITY OF CARE.
[2017-12-10 20:00] VITALS: BP 135/74
[2017-12-10] MEDS: IPRATROPIUM NEB FS 0.5 MG/2.5 ML AMPUL.NEB NEB SCH (21:04)
[2017-12-10] MEDS: MORPHINE SULFATE SOLN CONCENTRATED 20 MG/ML SL PRN (21:07)
--- NOTE | 2017-12-10 21:07 | NUR ---
MS RN NOTES CO GENERALIZED PAIN,MEDICATED WITH ROXANOL 5MG SL ORDERED FOR COMFORT.
[2017-12-10 22:00] VITALS: BP 135/74
[2017-12-11] MEDS: IPRATROPIUM NEB FS 0.5 MG/2.5 ML AMPUL.NEB NEB SCH ×4 (02:23→19:51)
[2017-12-11] MEDS: MORPHINE SULFATE SOLN CONCENTRATED 20 MG/ML SL PRN ×2 (02:41→20:54)
--- NOTE | 2017-12-11 02:41 | NUR ---
COAL CUTTER NOTES RT AT BEDSIDE ADMINISTERING BREATHING TREATMENT,RESTLESS,TRYING TO TAKE OUT NRM.ASKED IF HE'S IN PAIN,CLAIMED YES.MEDICATED WITH ROXANOL 5MG SL,RR-24,WILL CONTINUE TO MONITOR STATUS.
--- NOTE | 2017-12-11 07:25 | NUR ---
FRENCH COMBER OPENING NOTES PT RECEIVED AWAKE IN BED IN NO ACUTE SIGNS OF DISTRESS. HOB ELEVATED. A/O X2. VERBALLY RESPONSIVE, DENIES ANY PAIN OR DISCOMFORTS AT THIS TIME. PT IS HOSPICE, WILL CONTINUE COMFORT MEASURES. ON NON-REBREATHER MASK,TOLERATING AND SATURATING WELL. IV ACCESS ON LFA PATENT AND INTACT, NO REDNESS OR INFILTRATION NOTED. SAFETY MEASURES IN PLACE. BED IN LOW/LOCKED POSITION WITH SR UP X2. CALL LIGHT WITHIN EASY REACH. WILL CONTINUE TO MONITOR.
--- NOTE | 2017-12-11 07:33 | NUR ---
VINYL CUTTER NOTES NO SIGNIFICANT CHANGE IN STATUS.STILL ON NON RE BREATHER MAST AT 15 LITERS TOLERATED WELL.COMFORT MEASURES ONLY.ENDORSE TO INA RN FOR CARLY.
[2017-12-11 08:00] VITALS: BP 136/68
--- NOTE | 2017-12-11 13:14 | NUR ---
RN NOTES PATIENT PLACED ON 02 VIA N/C AT 10LPM EARLIER WITH SP02 OF 90-92 % NOTED. NO C/O OF RESPIRATORY DISTRESS NOTED VOICED. WHEN HOSPICE NURSE KAI FROM [facility] CAME, PT VOICED THAT HE'S HAVING MILD SOB, TRIED TO PUT HIM FIRTS IN REGULAR MASK BUT PT NOT TOLERATING AND STILL HAVING MILD SOB AND SP02 OF 88%. PT REQUESTED TO PUT HIM ON NON-REBREATHER MASK AT 15LPM, TOLERATING WELL WITH SP02 OF 94-95%. WILL CONTINUE TO MONITOR.
[2017-12-11 15:48] VITALS: BP 143/69
--- NOTE | 2017-12-11 18:40 | NUR ---
MANAGEMENT DEVELOPER CLOSING NOTES PT IN BED COMFORTABLY LYING AT MODERATE HIGH BACKREST POSITION. A/O X1-2. VERBALLY RESPONSIVE. MAINTAINED ON HOSPICE CARE. FAMILY VISITED TODAY. ON NON-REBREATHER MASK AT 15LPM,TOLERATING AND SATURATING WELL. IV ACCESS ON LFA PATENT AND INTACT, FLUSHES WELL. ALL SAFETY MEASURES KEPT IN PLACE. BED IN LOW/LOCKED POSITION WITH SR UP X2. CALL LIGHT WITHIN EASY REACH. COMFORT MEASURES PROVIDED. TURNED AND REPOSITIONED Q2HRS AND PRN. WILL ENDORSE TO MEN'S LEATHER DRESS BELT MAKER NURSE FOR CARLY.
--- NOTE | 2017-12-11 19:45 | NUR ---
THERAPIST ASST NOTES RECEIVED ON BED A/0 X1-2,FAMILY MEMBERS AT BEDSIDE.O2 AT 15LITERS/NRM IN USED ,O2 SAT 97%.SALINE LOCK LFA INTACT AND PATENT.ON COMFORT MEASURES ONLY.REPOSITION PER PROTOCOL.CALL LIGHT IN REACH NEEDS ANTICIPATED.
[2017-12-11 20:00] VITALS: BP 114/58
--- NOTE | 2017-12-11 20:30 | NUR ---
OPERATIONS SPECIALIST NOTES EVENING CARE RENDERED TOLERATED WELL.MEPILEX APPLIED TO SACRAL AREA FOR SKIN MANAGEMENT.REPOSITION TO RIGHT SIDE BUT PATIENT PREFER TO STAY ON BACK POSITION.
--- NOTE | 2017-12-11 20:54 | NUR ---
FISH HATCHERY MAN NOTES FACIAL GRIMACE NOTED,ROXANOL 5MG SL ADMINISTERED PRN FOR PAIN
[2017-12-11 22:00] VITALS: BP 114/58
[2017-12-12] MEDS: IPRATROPIUM NEB FS 0.5 MG/2.5 ML AMPUL.NEB NEB SCH ×4 (01:15→20:31)
--- NOTE | 2017-12-12 06:38 | NUR ---
NURSE COMPANION NOTES MORNING CARE RENDERED TOLERATED WELL.CALM AND QUIET THRU OUT SHIFT.BREATHING NON LABORED,STILL ON NRM AT 15L,RR AT 26.WILL ENDORSE TO INA DUPREE FOR CARLY.
--- NOTE | 2017-12-12 07:25 | NUR ---
PORCELAIN WAXER OPENING NOTES RECEIVED PT IN BED AWAKE, ALERT AND ORIENTED X1-2. VERBALLY RESPONSIVE, DENIES ANY PAIN OR DISCOMFORTS AT THIS TIME. PT IS HOSPICE, COMFORT CARE MEASURES CONTINUES. ON NON-REBREATHER MASK @ 15LPM, TOLERATING WELL WITH NO SOB NOTED. IV ACCESS ON LFA PATENT AND INTACT, NO REDNESS OR INFILTRATION NOTED. SAFETY MEASURES IN PLACE. BED IN LOW/LOCKED POSITION WITH SR UP X2. CALL LIGHT WITHIN EASY REACH. WILL CONTINUE TO MONITOR.
[2017-12-12 08:00] VITALS: BP 129/61
[2017-12-12] MEDS: PHENOL/SODIUM PHENOLATE 1 BOTTLE MM PRN ×3 (12:32→21:24)
--- NOTE | 2017-12-12 13:45 | NUR ---
RN NOTES PATIENT PLACED ON 02 VIA MASK @ 10LPM BUT AFTER A MINUTE, PT DESATURATING TO 90% AND BECAME RESTLESS, SAME COMPLAINING THAT HE'S HAVING SHORTNESS OF BREATH. PATIENT PLACED BACK TO NON-REBREATHER MASK @ 15LPM AND TOLERATING WELL. WILL CONTINUE TO MONITOR.
[2017-12-12 16:00] VITALS: BP 121/68
--- NOTE | 2017-12-12 18:32 | NUR ---
MILLER WOOD FLOUR CLOSING NOTES PATIENT AWAKE IN BED COMFORTABLY RESTING @ MODERATE HIGH BACKREST POSITION. A/O X1-2, SAME VERBALLY RESPONSIVE. ON NON-REBREATHER MASK AT 15LPM, TOLERATING AND SATURATING WELL. MAINTAINED ON HOSPICE CARE. FAMILY VISITED TODAY. IV ACCESS ON LFA PATENT AND INTACT, FLUSHES WELL. ALL SAFETY MEASURES KEPT IN PLACE. HOB KEPT ELEVATED. BED IN LOW/LOCKED POSITION WITH SR UP X2. CALL LIGHT WITHIN EASY REACH. COMFORT MEASURES PROVIDED. TURNED AND REPOSITIONED Q2HRS AND PRN. WILL ENDORSE TO MANAGER CHEMICAL NURSE FOR CARLY.
[2017-12-12] MEDS ORDERED: LIDOCAINE VISCOUS 2% UD 15 ML UDC MM PRN (19:00)
--- NOTE | 2017-12-12 19:55 | NUR ---
RN OPENING NOTES RECEIVED REPORT FROM JAX RNINA. FOUND Pt AWAKE, RESTING IN BED, WITH NO S/S OF ACUTE DISTRESS OR SEVERE SOB NOTED. Pt IS A/OX1-2, KHMER SPEAKING MAINLY, BUT IS ABLE TO UNDERSTAND SOME LEBANESE. Pt IS UNDER HOSPICE COMFORT CARE. ON 15L 02 ON NR MASK, OK BY . IV ACCESS ON LFA #20G, SL. SAFETY MEASURES IN PLACE. BED LOW, LOCKED, HOB ELEVATED, SIDE RAILS UP, CALL LIGHT & BEDSIDE TABLE WITHIN REACH. WILL CONTINUE TO MONITOR Pt THROUGHOUT THE NIGHT FOR SAFETY.
[2017-12-12 20:00] VITALS: BP 119/71
[2017-12-12] MEDS: LORAZEPAM INJ 2 MG/ML VIAL IV PRN (21:24)
[2017-12-12 22:00] VITALS: BP 119/71
[2017-12-13] MEDS: IPRATROPIUM NEB FS 0.5 MG/2.5 ML AMPUL.NEB NEB SCH ×4 (02:22→14:09)
--- NOTE | 2017-12-13 06:44 | NUR ---
RN CLOSING NOTES NO SIGNIFICANT CHANGES IN Pt's CONDITION. NO S/S OF ACUTE DISTRESS OR SEVERE SOB NOTED DURING THE NIGHT. O2 SAT MAINTAINED >92% THROUGHOUT THE SHIFT. Pt ON 10-15L O2 ON NRB MASK. ALL NEEDS MET AND ATTENDED TO. SAFETY MEASURES IN PLACE. BED LOW, LOCKED, HOB ELEVATED, SIDE RAILS UP, CALL LIGHT AND BEDSIDE TABLE WITHIN REACH. WILL ENDORSE TO DAYSHIFT RN FOR Pt's CARLY.
--- NOTE | 2017-12-13 07:20 | NUR ---
DINKEY ENGINE FIRER OPENING NOTE RECEIVED PATIENT IN BED, ALERT ORIENTED X3, RESPONDS VERBALLY, ROMANSH SPEAKING ONLY. ON 15L O2 VIA NON-REBREATHER MASK, TOLERATING WELL, O2 SATURATION AT 95%. RESPIRATIONS EVEN AND UNLABORED, IN NO APPARENT DISTRESS OR DISCOMFORT AT THIS TIME. COMFORT MEASURES TO BE PROVIDED TO PATIENT THROUGHOUT THE SHIFT. PATIENT IS INCONTINENT WITH DIAPER USE FOR ELIMINATION. WITH L FA 20G IV ACCESS , SL, PATENT AND INTACT. PATIENT IS ABLE TO COMMUNICATE NEEDS IN ROMANSH, KEPT CLEAN AND COMFORTABLE. SAFETY MEASURES IN PLACE, BED IN LOW LOCKED POSITION, SIDE RIALS UP X2, CALL LIGHT WITHIN EASY REACH. WILL CONTINUE TO MONITOR.
[2017-12-13 08:05] VITALS: BP 140/76
[2017-12-13] MEDS: MORPHINE SULFATE SOLN CONCENTRATED 20 MG/ML SL PRN ×6 (09:08→14:59)
[2017-12-13] MEDS: LORAZEPAM INJ 2 MG/ML VIAL IV PRN (09:48)
[2017-12-13 10:00] VITALS: BP 140/76
--- NOTE | 2017-12-13 11:44 | NUR ---
INFORMED DR. LEIVA ABOUT PATIENT'S CURRENT CONDITION, NOTIFIED ABOUT HEART RATE GOING UP TO 170BPM. RECEIVED ORDER TO CONTINUE CURRENT PAIN MANAGEMENT, AND VERBAL ORDER TO INCREASE THE FREQUENCY OF ATIVAN TO EVERY HOUR. WILL CARRY OUT ORDERS INSTRUCTED. Addendum: 12/13/17 at 1649 by MARY BENTLEY RN ORDERS READ BACK AND VERIFIED.
[2017-12-13] MEDS ORDERED: LORAZEPAM INJ 2 MG/ML VIAL IV PRN (12:00)
[2017-12-13 16:00] VITALS: BP 36/18
--- NOTE | 2017-12-13 16:41 | NUR ---
PATIENT HAS DESATURATED THROUGHOUT THE DAY. O2 IS AT 15LPM VIA NON-REBREATHER MASK, SATURATING IN HIGH 70%'S AT THIS TIME. BLOOD PRESSURE IS 36/18. PATIENT APPEARS COMFORTABLE AT THIS TIME. PAIN MEDICATIONS GIVEN PER ORDER EVERY HOUR TO OPTIMIZE PATIENT'S COMFORT. FAMILY AT BEDSIDE, ALL NEEDS ATTENDED AT THIS TIME. WILL CONTINUE TO MONITOR.
--- NOTE | 2017-12-13 17:10 | NUR ---
PATIENT AT 1650. CONFIRMED AND PRONOUNCED BY TWO RNS. FAMILY AT BEDSIDE AT THE TIME OF . ALL THE NEEDED TIME WAS PROVIDED TO FAMILY TO GRIEF. INFORMED SLEEVE BOTTOM FELLER AND CHARGE NURSE. INFORMED DR. CALI MD. CALLED THE [facility] REPORTED THE : CASE #[id number]. OBTAINED INFORMATION FROM THE FAMILY REGARDING MORTUARY THEY PREFER. CALLED AND INFORMED ABOUT AND SET UP A [facility]URANCE SERVICES MANAGER HEALTH CARE WITH [facility] Addendum: 12/13/17 at 1756 by MARY BENTLEY RN SARMAD, SPOKE TO FARA. [facility] WELL MANAGING RN WAS NOTIFIED. ALL THE NECESSARY CARE WILL BE PROVIDED TO PREPARE THE PATIENT FOR PICKUP.
--- NOTE | 2017-12-13 19:40 | NUR ---
hOSPICE/RN NOTES PATIENT BODY WAS PICKED UP BY MORTUARY, [facility] [employer] TWO CAME , FAMILY WAS INFORMED AND REQUESTED BELONGINGS TO BE SENT TO MORTUARY [facility]AND[facility] C[employer]TER [employer], SECURITY ASSISTED, DISCHARGE RN WAS INFORMED, PAPER WORK WAS SIGNED, COPY WAS GIVEN.
== END 2017-12-13 19:40 | disposition expired | DRG 180 ==
LOC: SAOV 18:08 → MEDSG2 19:36 → HOSPICE2 19:45
PROVIDERS: ADMIT Internal Medicine; ATTEND Internal Medicine
DX: C34.90 Malignant neoplasm of unspecified part of unspecified bronchus or lung (principal); Z51.5 Encounter for palliative care; J18.9 Pneumonia, unspecified organism; A41.9 Sepsis, unspecified organism; R65.20 Severe sepsis without septic shock; J96.01 Acute respiratory failure with hypoxia; I21.A1 Myocardial infarction type 2; N17.0 Acute kidney failure with tubular necrosis; I26.99 Other pulmonary embolism without acute cor pulmonale; C78.7 Secondary malignant neoplasm of liver and intrahepatic bile duct; E87.1 Hypo-osmolality and hyponatremia; I82.432 Acute embolism and thrombosis of left popliteal vein; I82.413 Acute embolism and thrombosis of femoral vein, bilateral; E44.0 Moderate protein-calorie malnutrition; I48.91 Unspecified atrial fibrillation; E86.1 Hypovolemia; Z95.1 Presence of aortocoronary bypass graft; I25.10 Atherosclerotic heart disease of native coronary artery without angina pectoris; D64.9 Anemia, unspecified; E87.6 Hypokalemia; E83.52 Hypercalcemia; I10 Essential (primary) hypertension; E11.9 Type 2 diabetes mellitus without complications; K59.00 Constipation, unspecified; Z68.24 Body mass index [BMI] 24.0-24.9, adult
CPT/HCPCS: 94760-TC; A4606; J2060